=== PATIENT | female | born 1955 | race Caucasian/White ===

== ENCOUNTER 2017-04-16 07:32 | Observation (INO) ==
[2017-04-16] MEDS ORDERED: 0.9 % Sodium Chloride 1,000 ML IVC ONE (07:58)
--- NOTE | 2017-04-16 08:07 | Emergency Department Note ---
Disposition Clinical Impression: Seizure, Resolved abdominal pain Disposition: Admitted As Inpatient Condition: Good Time of Disposition: 12:31 General Adult HPI - General Chief complaint: ED Seizure Stated complaint: seizure/postictal Time Seen by Provider: 04/16/17 07:37 Source: patient, EMS Mode of arrival: EMS Limitations: no limitations Nursing Notes Reviewed: Yes Vital Signs Reviewed: Yes - History of Present Illness HPI Narrative: Pt is a 62 year old female with history of anxiety, bipolar disorder, schizophrenia, hld, htn, and gerd that presents to the ED with chief complaint seizure like- activity, nausea and vomiting. Patient states that she woke this morning around 6 AM and vomited 3-4 times. Patient states she felt very hot and clammy so her put a cool rag over her forehead while laying in bed states patient upper and lower extremities startted shaking uncontrollable for approx 2-3 minutes and her eyes rolled back in her head. Pt states " I don't know if I was having a seizure or what, I don't remember any of it" states he then called EMS. Upon arrival patient is denying any complaints besides right upper abdominal pain and lower back pain that started when she got here. She denies any chest pain, shortness of breath, vomiting, diarrhea, constipation, cough, headache, dizziness, lightheadedness, change in vision or any other symptoms/complaints. Denies any recent head trauma. Pain Scale: 7 - Related Data Home Medications Medication Instructions Recorded Confirmed Aspirin Enteric Coated [Aspirin EC] 81 mg PO DAILY 11/14/16 04/16/17 hydrOXYzine HCl [Hydroxyzine HCl] 25 mg PO Q8H PRN 11/14/16 04/16/17 hydroCHLOROthiazide 12.5 mg PO DAILY 11/14/16 04/16/17 [Hydrochlorothiazide] Metoprolol XL (24 HR) Succ [Toprol 50 mg PO DAILY 04/16/17 04/16/17 XL] Simvastatin [Zocor] 10 mg PO QPM 04/16/17 04/16/17 Allergies Allergy/AdvReac Type Severity Reaction Status Date / Time Erythromycin Base Allergy Hives Verified 04/16/17 07:35 hydrocodone [From [place]] AdvReac Nausea Verified 04/16/17 07:35 quetiapine [From Sero[place]] AdvReac Numbness Verified 04/16/17 13:12 Past Medical History - Past Medical History Medical history: Reports: GERD, hyperlipidemia, hypertension, other Surgical history: Reports: hysterectomy Psychiatric history: Reports: anxiety, bipolar, depression [employer] history: Reports: cervical cancer - Social History Smoking Status: Never smoker Smokeless Tobacco Status: No Alcohol use: Reports: none Drug use: Reports: none Physical Exam - General Limitations: no limitations General appearance: alert, in no apparent distress - Head Head exam: atraumatic, normocephalic, normal inspection - Eye Eye exam: Present: normal appearance, PERRL, EOMI - ENT ENT exam: normal exam, normal oropharynx, mucous membranes moist, TM's normal bilaterally - Neck Neck exam: Present: normal inspection, full ROM, trachea midline. Absent: tenderness, meningismus - Chest Chest inspection: Present: symmetric chest wall rise - Respiratory Respiratory exam: Present: normal lung sounds bilaterally - Cardiovascular Cardiovascular exam: Present: regular rate, normal rhythm, normal heart sounds - Abdominal Exam Abdominal exam: Present: soft, tenderness (mild RUQ/ epigastric tenderness with palpation), normal bowel sounds. Absent: distention, guarding, rebound, rigidity - Extremities Exam Extremities exam: Present: normal inspection, full ROM. Absent: tenderness, pedal edema - Expanded Lower Extremity Exam Gait: observed and normal - Back Exam Back exam: Present: normal inspection, full ROM. Absent: tenderness - Neurological Exam Neurological exam: Present: alert, oriented X3, CN II-XII intact, normal gait. Absent: motor sensory deficit - Psychiatric Psychiatric exam: Present: normal affect, normal mood - Skin Skin exam: Present: warm, dry, intact, normal color Course Course Narrative: Pt is a 62 year old female with history of anxiety, bipolar disorder, schizophrenia, hld, htn, and gerd that presents to the ED with chief complaint seizure like- activity, nausea and vomiting. Patient states that she woke this morning around 6 AM and vomited 3-4 times. Patient states she felt very hot and clammy so her put a cool rag over her forehead while laying in bed states patient upper and lower extremities startted shaking uncontrollable for approx 2-3 minutes and her eyes rolled back in her head. Pt states " I don't know if I was having a seizure or what, I don't remember any of it" states he then called EMS. Upon arrival patient is denying any complaints besides right upper abdominal pain and lower back pain that started when she got here. She denies any chest pain, shortness of breath, vomiting , diarrhea, constipation, cough, headache, dizziness, lightheadedness, change in vision or any other symptoms/complaints. Denies any recent head trauma. Patient is a 62-year-old female. Vital stable. Afebrile. Alert and oriented 3. Appears in no acute distress. Head normocephalic. No signs of external trauma. Eyes normal inspection. PERRLA. Extraocular motor intact. ENT within normal limits. Airway patent. Neck supple, full range motion, nontender. No signs of meningeal irritation. Heart RRR. Lungs CTAB. Abdomen soft, mild right upper quadrant and epigastric tenderness with palpation. No Guarding or rebound noted. Normal bowel sounds. Neck normal inspection, nontender. Extremities within normal limits. Neuro no focal neurological deficits noted on exam. Pt seen by Dr. Trinh in conjunction with me. Patient told Dr. Trinh at that she had been talking to GOD and her time to is this year. He denies any suicidal or homicidal ideations. We will consult 1A secondary to her previous psych history. Pt reports abdominal pain is completely resolved without any pain medication. EKG normal sinus. Chest x-ray shows no acute cardiopulmonary abnormalities. Labs unremarkable. WBC within normal limits. CT of the abd and pelvis: Motion limited study. No convincing evidence for acute intra- abdominal or intrapelvic pathology. No bowel obstruction or inflammation. No free intraperitoneal air or fluid. No convincing evidence for nephrolithiasis. Bilateral parapelvic renal cysts. Evidence for previous granulomatous exposure. Stable tiny pulmonary nodule in the left lower lung as previously described. Please see CT report of 10/09/2016 for follow-up recommendations. Reviewed Dr. Ackerman note from when pt was admitted to the hospital/ MRI was negative for acute stroke but there is are of increase signal in temporal lobe, repeat MRI in one month was recommended. MRI as follows: MRI from 11/15/16 1. Mild increased T2 signal intensity within the left hippocampus. This may represent a seizure focus. 2. Two foci of increased signal on diffusion-weighted imaging without clear restricted diffusion on the ADC map suggesting T2 shine through and subacute to chronic infarcts. 3. 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 4. No acute infarct identified. Discussed case with neurologist Dr. Pickens. Dr. Pickens recommended patient be admitted to the hospital service for an MRI. Pt agrees with tx plan. 1A evaluated patient and gave patient outpatient follow-up resources. States she did not meet inpatient criteria for psych. Denies any homicidal/suicidal deviations. Discussed case with the hospitalist . Accepted patient. He is requesting that we give 1000mg of Keppra in our ED prior to the floor. Dr. Louis in the ED seeing patient now. 01:05PM. Dr. Trinh had [id number] time with patient and agrees with my assessment and treatment plan. Vital Signs Temperature 98.2 F 04/16/17 07:35 Pulse Rate 60 04/16/17 07:35 Respiratory Rate 20 04/16/17 07:35 Blood Pressure 172/80 04/16/17 07:35 O2 Sat by Pulse Oximetry 99 04/16/17 07:35 Temperature 97.9 F 04/16/17 14:57 Pulse Rate 57 04/16/17 14:57 Respiratory Rate 20 04/16/17 15:09 Blood Pressure 154/89 04/16/17 15:09 O2 Sat by Pulse Oximetry 98 04/16/17 14:57 Oxygen Delivery Oxygen Delivery Room Air Medical Decision Making - Medical Records Medical records reviewed: Yes I reviewed the patient's medical records. - Lab Data Lab results reviewed: Yes I reviewed the patient's lab results. Result diagrams: 04/16/17 08:13 04/16/17 08:13 Lab Results 04/16/17 04/16/17 04/16/17 Range/Units 07:52 08:13 08:13 WBC 10.8 (4.3-11.1) K/mcL RBC 5.22 H (3.82-4.97) M/mcL Hgb 14.3 (11.5-15.4) g/dL Hct 42.6 (35.3-44.9) % MCV 81.6 L (83.0-100.0) fL MCH 27.4 L (28.0-33.3) pg MCHC 33.6 (31.6-35.5) g/dL RDW 12.7 (11.5-14.5) % Plt Count 277 (140-400) K/mcL MPV 10.0 (9.4-12.4) fL Immature Gran % 0.6 (0-4) % Seg Neutrophils % 82.8 % Lymphocytes % 12.5 % Monocytes % 3.7 % Eosinophils % 0.2 % Basophils % 0.2 % Neutrophils # 8.9 (1.6-8.9) K/mcL Lymphocytes # 1.4 (0.6-4.6) K/mcL Monocytes # 0.4 (0.0-1.3) K/mcL Eosinophils # 0.0 (0.0-0.6) K/mcL Basophils # 0.0 (0.0-0.2) K/mcL Sodium 139 (136-145) mEq/L Potassium 3.7 (3.5-5.1) mEq/L Chloride 106 (98-107) mEq/L Carbon Dioxide 25 (23-29) mEq/L BUN 8 (8-23) mg/dL Creatinine 0.64 (0.60-1.20) mg/dL Est GFR ( Amer) > 60 (> 60) Est GFR (Non-Af Amer) > 60 (> 60) BUN/Creatinine Ratio 13 (6-26) Glucose 174 H (70-105) mg/dL POC Glucose 195 H (58-89) Calculated Osmolality 291 (280-300) Calcium 9.7 (8.6-10.3) mg/dL Total Bilirubin 0.4 (0.3-1.0) mg/dL AST 12 L (13-39) Units/L ALT 13 (7-52) Units/L Alkaline Phosphatase 83 (34-104) Units/L Troponin I (< 0.04) ng/mL Serum Total Protein 6.9 (6.4-8.9) g/dL Albumin 4.2 (3.5-5.7) g/dL Globulin 2.7 (2.4-3.5) g/dL Albumin/Globulin Ratio 1.6 (1.1-2.2) Lipase (11-82) Units/L Urine Color (Yellow) Urine Clarity (Clear) Urine pH (5.0-8.0) pH Units Ur Specific [place] (1.010-1.025) Urine Protein (Neg-Trace) mg/dL Urine Glucose (UA) (Normal) mg/dL Urine Ketones (Negative) mg/dL Urine Blood (Negative) Urine Nitrite (Negative) Urine Bilirubin (Negative) Urine Urobilinogen (Normal) mg/dL Ur Leukocyte Esterase (Negative) Urine Microscopic RBC (0-3) per hpf Urine Microscopic WBC (0-3) per hpf Ur Squamous Epith Cells (None-Few) per lpf Urine Bacteria (None-Few) per hpf Hyaline Casts (None-Few) per lpf Urine Opiates Screen (Wjhotv=811) ng/mL Ur Barbiturates Screen (Aaagfv=473) ng/mL Ur Phencyclidine Scrn (Cutoff=25) ng/mL Ur Amphetamines Screen (Grrpvj=3309) ng/mL U Benzodiazepines Scrn (Ojvxnd=855) ng/mL Urine Cocaine Screen (Cutoff= 300) ng/mL U Marijuana (THC) Screen (Cutoff = 50) ng/mL 04/16/17 04/16/17 04/16/17 Range/Units 08:13 08:13 08:17 WBC (4.3-11.1) K/mcL RBC (3.82-4.97) M/mcL Hgb (11.5-15.4) g/dL Hct (35.3-44.9) % MCV (83.0-100.0) fL MCH (28.0-33.3) pg MCHC (31.6-35.5) g/dL RDW (11.5-14.5) % Plt Count (140-400) K/mcL MPV (9.4-12.4) fL Immature Gran % (0-4) % Seg Neutrophils % % Lymphocytes % % Monocytes % % Eosinophils % % Basophils % % Neutrophils # (1.6-8.9) K/mcL Lymphocytes # (0.6-4.6) K/mcL Monocytes # (0.0-1.3) K/mcL Eosinophils # (0.0-0.6) K/mcL Basophils # (0.0-0.2) K/mcL Sodium (136-145) mEq/L Potassium (3.5-5.1) mEq/L Chloride (98-107) mEq/L Carbon Dioxide (23-29) mEq/L BUN (8-23) mg/dL Creatinine (0.60-1.20) mg/dL Est GFR ( Amer) (> 60) Est GFR (Non-Af Amer) (> 60) BUN/Creatinine Ratio (6-26) Glucose (70-105) mg/dL POC Glucose (58-89) Calculated Osmolality (280-300) Calcium (8.6-10.3) mg/dL Total Bilirubin (0.3-1.0) mg/dL AST (13-39) Units/L ALT (7-52) Units/L Alkaline Phosphatase (34-104) Units/L Troponin I < 0.03 (< 0.04) ng/mL Serum Total Protein (6.4-8.9) g/dL Albumin (3.5-5.7) g/dL Globulin (2.4-3.5) g/dL Albumin/Globulin Ratio (1.1-2.2) Lipase 27 (11-82) Units/L Urine Color Yellow (Yellow) Urine Clarity Cloudy A (Clear) Urine pH 8.0 (5.0-8.0) pH Units Ur Specific [place] 1.015 (1.010-1.025) Urine Protein Trace (Neg-Trace) mg/dL Urine Glucose (UA) 250 H (Normal) mg/dL Urine Ketones Negative (Negative) mg/dL Urine Blood Negative (Negative) Urine Nitrite Negative (Negative) Urine Bilirubin Negative (Negative) Urine Urobilinogen Normal (Normal) mg/dL Ur Leukocyte Esterase Negative (Negative) Urine Microscopic RBC 0-3 (0-3) per hpf Urine Microscopic WBC 0-3 (0-3) per hpf Ur Squamous Epith Cells Many H (None-Few) per lpf Urine Bacteria None Seen (None-Few) per hpf Hyaline Casts None Seen (None-Few) per lpf Urine Opiates Screen (Vsudjt=881) ng/mL Ur Barbiturates Screen (Kqzhkf=602) ng/mL Ur Phencyclidine Scrn (Cutoff=25) ng/mL Ur Amphetamines Screen (Lobnxv=5082) ng/mL U Benzodiazepines Scrn (Ujjcma=432) ng/mL Urine Cocaine Screen (Cutoff= 300) ng/mL U Marijuana (THC) Screen (Cutoff = 50) ng/mL 04/16/17 Range/Units 08:17 WBC (4.3-11.1) K/mcL RBC (3.82-4.97) M/mcL Hgb (11.5-15.4) g/dL Hct (35.3-44.9) % MCV (83.0-100.0) fL MCH (28.0-33.3) pg MCHC (31.6-35.5) g/dL RDW (11.5-14.5) % Plt Count (140-400) K/mcL MPV (9.4-12.4) fL Immature Gran % (0-4) % Seg Neutrophils % % Lymphocytes % % Monocytes % % Eosinophils % % Basophils % % Neutrophils # (1.6-8.9) K/mcL Lymphocytes # (0.6-4.6) K/mcL Monocytes # (0.0-1.3) K/mcL Eosinophils # (0.0-0.6) K/mcL Basophils # (0.0-0.2) K/mcL Sodium (136-145) mEq/L Potassium (3.5-5.1) mEq/L Chloride (98-107) mEq/L Carbon Dioxide (23-29) mEq/L BUN (8-23) mg/dL Creatinine (0.60-1.20) mg/dL Est GFR ( Amer) (> 60) Est GFR (Non-Af Amer) (> 60) BUN/Creatinine Ratio (6-26) Glucose (70-105) mg/dL POC Glucose (58-89) Calculated Osmolality (280-300) Calcium (8.6-10.3) mg/dL Total Bilirubin (0.3-1.0) mg/dL AST (13-39) Units/L ALT (7-52) Units/L Alkaline Phosphatase (34-104) Units/L Troponin I (< 0.04) ng/mL Serum Total Protein (6.4-8.9) g/dL Albumin (3.5-5.7) g/dL Globulin (2.4-3.5) g/dL Albumin/Globulin Ratio (1.1-2.2) Lipase (11-82) Units/L Urine Color (Yellow) Urine Clarity (Clear) Urine pH (5.0-8.0) pH Units Ur Specific [place] (1.010-1.025) Urine Protein (Neg-Trace) mg/dL Urine Glucose (UA) (Normal) mg/dL Urine Ketones (Negative) mg/dL Urine Blood (Negative) Urine Nitrite (Negative) Urine Bilirubin (Negative) Urine Urobilinogen (Normal) mg/dL Ur Leukocyte Esterase (Negative) Urine Microscopic RBC (0-3) per hpf Urine Microscopic WBC (0-3) per hpf Ur Squamous Epith Cells (None-Few) per lpf Urine Bacteria (None-Few) per hpf Hyaline Casts (None-Few) per lpf Urine Opiates Screen Negative (Wzyzzm=084) ng/mL Ur Barbiturates Screen Negative (Lovtif=409) ng/mL Ur Phencyclidine Scrn Negative (Cutoff=25) ng/mL Ur Amphetamines Screen Negative (Necukz=4308) ng/mL U Benzodiazepines Scrn Negative (Uzbity=166) ng/mL Urine Cocaine Screen Negative (Cutoff= 300) ng/mL U Marijuana (THC) Screen Negative (Cutoff = 50) ng/mL - Radiology Data Radiology results reviewed: Yes I reviewed the patient's radiology results. Attestation Statement - Attestation Attestation: I, Erik Trinh DO have provided [id number]-[id number] time during the care of this patient. Detailed review the presentation, symptoms, medical history were discussed and reviewed with the mid-level provider Candice Trinh PA-C. Medical intervention labs and imaging studies were reviewed in detail. See full documentation of physical exam and course of care in the mid-level provider's note. I agree with the determined course of care, medical intervention and disposition put forth by the mid-level provider. See below documentation for changes or alterations in documentation. 58-year-old female presents to the emergency room from multiple complaints. She has chest pain headache nausea vomiting abdominal discomfort. She also had seizure-like activity at home according to the family. Lengthy review as well as workup were completed at the bedside. Patient has no acute neurologic deficits or symptoms at this time. Patient is alert she speaks in full sentences and does not appear to have any acute medical issues. At his atraumatic Reactive lungs are clear heart is regular. Abdomen is soft. Patient definitively is concerning for possible neurologic versus psychiatric-related illness. CT imaging of the head and labs unremarkable. Review the charts in the past shows an MRI was positive for possible temporal lobe likely related issue. Consultation postoperatively neurologist on-call for their recommendations and they felt that it was most appropriate for the patient to be admitted secondary to the constitution of symptoms here today. Patient otherwise is stable vital signs. Symptoms of an control. Disposition will be admission with neurology consultation. See detailed documentation of the physical exam, medical intervention, medical decision-making and disposition in the mid-level provider's note. 1350 Patient found to have concern by the neurologist for the previous MRI. Recommended admission. Admission passes completed this time. No critical care by this patient's treatment course
[2017-04-16 08:21] LABS: Basophils % 0.2 %; Eosinophils % 0.2 %; Hematocrit 42.6 % (35.3-44.9); Hemoglobin 14.3 g/dL (11.5-15.4); Immature Granulocytes % 0.6 % (0-4); Lymphocytes # 1.4 K/mcL (0.6-4.6); Lymphocytes % 12.5 %; Mean Corpuscular HGB Conc 33.6 g/dL (31.6-35.5); Mean Corpuscular Hemoglobin 27.4 pg (28.0-33.3); Mean Corpuscular Volume 81.6 fL (83.0-100.0); Monocytes # 0.4 K/mcL (0.0-1.3); Monocytes % 3.7 %; Neutrophils # 8.9 K/mcL (1.6-8.9); Platelet Count 277 K/mcL (140-400); Red Blood Count 5.22 M/mcL (3.82-4.97); Red Cell Distribution Width 12.7 % (11.5-14.5); Segmented Neutrophils % 82.8 %
[2017-04-16 08:32] LABS: Bilirubin,Urine Negative (Negative); Blood,Urine Negative (Negative); Clarity,Urine Cloudy (Clear); Color,Urine Yellow (Yellow); Glucose,Urine (UA) 250 mg/dL (Normal); Ketones,Urine Negative (Negative); Leukocyte Esterase,Urine Negative (Negative); Nitrite,Urine Negative (Negative); Protein,Urine Trace mg/dL (Neg-Trace); Specific Gravity,Urine 1.015 (1.010-1.025); Urobilinogen,Urine Normal (Normal)
[2017-04-16 08:33] LABS: Albumin 4.2 g/dL (3.5-5.7); Bilirubin,Total 0.4 mg/dL (0.3-1.0); Calcium 9.7 mg/dL (8.6-10.3); Carbon Dioxide 25 mEq/L (23-29); Chloride 106 mEq/L (98-107); Potassium 3.7 mEq/L (3.5-5.1); Sodium 139 mEq/L (136-145)
[2017-04-16 08:34] LABS: Bacteria,Urine None Seen per hpf (None-Few); Hyaline Casts,Urine None Seen per lpf (None-Few); RBC,Urine 0-3 per hpf (0-3); Squamous Epithelial Cell,Urine Many per lpf (None-Few); WBC,Urine 0-3 per hpf (0-3)
[2017-04-16 08:38] LABS: Amphetamine Screen,Urine Negative ng/mL (Cutoff=1000); Barbiturate Screen,Urine Negative ng/mL (Cutoff=200); Benzodiazepines Screen,Urine Negative ng/mL (Cutoff=200); Cannabinoid Screen,Urine Negative ng/mL (Cutoff = 50); Cocaine Screen,Urine Negative ng/mL (Cutoff= 300); Opiate Screen,Urine Negative ng/mL (Cutoff=300); Phencyclidine Screen,Urine Negative ng/mL (Cutoff=25)
[2017-04-16 08:39] LABS: Alanine Aminotransferase 13 Units/L (7-52); Albumin/Globulin Ratio 1.6 (1.1-2.2); Alkaline Phosphatase 83 Units/L (34-104); Aspartate Amino Transferase 12 Units/L (13-39); BUN/Creatinine Ratio 13 (6-26); Blood Urea Nitrogen 8 mg/dL (8-23); Globulin 2.7 g/dL (2.4-3.5); Glucose 174 mg/dL (70-105); Osmolality,Calculated 291 (280-300); Total Protein 6.9 g/dL (6.4-8.9); eGFR For African Americans > 60 (> 60); eGFR For Non-African Americans > 60 (> 60)
[2017-04-16] MEDS ORDERED: levETIRAcetam 1,000 MG in 0.9 % Sodium Chloride 100 ML IVPB ONE (13:03)
[2017-04-16] MEDS ORDERED: Ondansetron 4 MG/2 ML VIAL IVP PRN (13:20)
[2017-04-16] MEDS ORDERED: Mag Hydrox/Al Hydrox/Simeth 30 ML UDC PO PRN (13:20)
[2017-04-16] MEDS ORDERED: Acetaminophen 325 MG TABLET PO PRN (13:20)
[2017-04-16] MEDS ORDERED: *HR* Promethazine 25 MG/ML VIAL IVP PRN (13:20)
[2017-04-16] MEDS ORDERED: Naloxone 0.4 MG/ML INJ IVP PRN (13:20)
[2017-04-16] MEDS ORDERED: hydrOXYzine pamoate 25 MG CAPSULE PO PRN (13:30)
--- NOTE | 2017-04-16 13:39 | Internal Med History&Physical ---
Date of Encounter: 04/16/17 Time of Encounter: 13:00 Assessment and Plan (1) Seizure Current visit: Yes Status: Acute Will place the pt into Med Surg for observation Her seizure seems to be real, and she had previous episode of seizure in 11/11 so at this point I would start her on Keppra 1000mg IV BID Hoping Keppra can help her mood disorder problems too Reviewed her MRI of Brain from 11/11 showed mild increased signal intensity at Left Hippocampus - concerning seizure foci will repeat another MRI of Head Neuro consulted ordered EEG too Neuro check / seizure precautions BZD PRN (2) Anxiety Current visit: No Status: Chronic started her on Klonopin (3) Bipolar disorder Current visit: No Status: Chronic She does have significant psych problems Will consult Psych today for further eval and needed close f/u as an out pt too Qualifiers: Active/Remission status: remission status unspecified Qualified Code(s): F31.9 - Bipolar disorder, unspecified (4) Hypertension Current visit: No Status: Chronic resumed home meds also placed her on Hydralazine IV PRN Qualifiers: Hypertension type: essential hypertension Qualified Code(s): I10 - Essential (primary) hypertension (5) Schizophrenia Current visit: No Status: Chronic Qualifiers: Schizophrenia type: unspecified Qualified Code(s): F20.9 - Schizophrenia, unspecified Internal Medicine - H&P: HPI Chief complaint: Seizure Admitted From: Emergency Dept Plans for Post Hospital Care: Home History of present illness: Ms. Jane is a 62 year old female with history of anxiety, bipolar disorder , schizophrenia, HLD, HTN and GERD with questionable seizure episode x 1 in 2016 now she was brought into the ED with chief complaint seizure like- activity , nausea and vomiting. Pt is a poor historial , she is unable to give me complete history what happened, also she mentioned she is not able to recall all the events what happened to at home. I did talk to pt's who is at bed side. As per she woke this morning around 6 AM and vomited 3-4 times. She felt very hot and clammy so her put a cool rag over her forehead while laying in bed. Then she started shaking uncontrollably her both upper and lower extremities for approx 2-3 minutes and her eyes rolled back in her head. Pt states " I don't know if I was having a seizure or what, I don't remember any of it" states he then called EMS. Now she is alert, awake and O x3. She denies any chest pain, shortness of breath, vomiting, diarrhea, constipation, cough, headache, dizziness, lightheadedness, change in vision or any other symptoms/complaints. Denies any recent head trauma. All she is worried about her Klonopin , she does have significant Bipolar / schizophrenia, not taking any medications and not following any psychiatrist. Past Med Surg Social Fam HX - Past Medical History Medical history: GERD, hyperlipidemia, hypertension, other Psychiatric history: anxiety, bipolar, depression - Past Surgical History Surgical History: hysterectomy - Social History Smoking Status: Never smoker Smokeless Tobacco Status: No Alcohol use: none Drug use: none - Family History Mother Hx Family Cardiac Disorders: Yes Hx Family Respiratory Disorders: No Hx Family Cancer: Yes Hx Family GI Disorders: No Hx Family Endocrine Disorder: No Hx Family Neuromuscular Disorders: No Hx Family Neurologic Disorders: No Hx Family HEENT Disorders: No Hx Family Autoimmune Disorders: No - Additional Family History Additional family history: Reviewed and denied any seizure disorder in the family Internal Medicine - H&P: Meds Aspirin Enteric Coated [Aspirin EC] 81 mg PO DAILY 11/14/16 [History] hydrOXYzine HCl [Hydroxyzine HCl] 25 mg PO Q8H PRN 11/14/16 [History] hydroCHLOROthiazide [Hydrochlorothiazide] 12.5 mg PO DAILY 11/14/16 [History] Metoprolol XL (24 HR) Succ [Toprol XL] 50 mg PO DAILY 04/16/17 [History] Simvastatin [Zocor] 10 mg PO QPM 04/16/17 [History] 3 Allergy/AdvReac Type Severity Reaction Status Date / Time Erythromycin Base Allergy Hives Verified 04/16/17 07:35 hydrocodone [From [place]] AdvReac Nausea Verified 04/16/17 07:35 quetiapine [From Seroquel] AdvReac Numbness Verified 04/16/17 13:12 All Systems PM: A 10-system review of systems was performed and is negative for pertinent findings except as documented above in the HPI. Review of systems: All the systems are reviewed everything is benign except the systems and symptoms I mentioned in the history of present illness - Constitutional Vitals: Temp Pulse Resp BP Pulse Ox 98.2 F 62 20 164/91 97 04/16/17 07:35 04/16/17 10:48 04/16/17 10:48 04/16/17 10:48 04/16/17 10:48 General appearance: Present: A&O X 3, no acute distress, answers questions appropriately - Head Head exam: Present: atraumatic, normal inspection - Neck Neck exam general surgery: Present: supple - Respiratory Respiratory exam: Present: decreased breath sounds. Absent: rales, respiratory distress, rhonchi, wheezes - Cardiovascular Cardiovascular exam: Present: RRR, +S1, +S2. Absent: tachycardia - GI/Abdominal GI/Abdominal exam: Present: normal bowel sounds, soft. Absent: rebound, rigid, tenderness - Extremities Exam Extremities exam: Absent: calf tenderness, pedal edema, tenderness - Back Exam Back exam: Absent: CVA tenderness (L), CVA tenderness (R) - Neurological Exam Neurological exam: Present: alert, oriented X3, reflexes normal, no focal deficits, strengths equal and symetr throughout. Absent: pronater drift, facial droop, speech deficit - Psychiatric Psychiatric exam: Present: anxious - Skin Skin exam: Absent: rash Internal Med - H&P Results - Labs CBC & Chem 7: 04/16/17 08:13 04/16/17 08:13 Labs: Short CBC 04/16/17 Range/Units 08:13 WBC 10.8 (4.3-11.1) K/mcL Hgb 14.3 (11.5-15.4) g/dL Hct 42.6 (35.3-44.9) % Plt Count 277 (140-400) K/mcL Neutrophils # 8.9 (1.6-8.9) K/mcL BMP 04/16/17 08:13 Sodium 139 Potassium 3.7 Chloride 106 Carbon Dioxide 25 BUN 8 Creatinine 0.64 Glucose 174 H Calcium 9.7 Cardiac Enzymes 04/16/17 Range/Units 08:13 Troponin I < 0.03 (< 0.04) ng/mL Liver Function 04/16/17 Range/Units 08:13 Total Bilirubin 0.4 (0.3-1.0) mg/dL AST 12 L (13-39) Units/L ALT 13 (7-52) Units/L Alkaline Phosphatase 83 (34-104) Units/L Albumin 4.2 (3.5-5.7) g/dL Urine 04/16/17 Range/Units 08:17 Urine Color Yellow (Yellow) Urine Clarity Cloudy A (Clear) Urine pH 8.0 (5.0-8.0) pH Units Ur Specific [place] 1.015 (1.010-1.025) Urine Protein Trace (Neg-Trace) mg/dL Urine Glucose (UA) 250 H (Normal) mg/dL - Impressions ITS Impressions Abdomen/Pelvis CT 04/16/17 08:00 IMPRESSION: Motion limited study. No convincing evidence for acute intra- abdominal or intrapelvic pathology. No bowel obstruction or inflammation. No free intraperitoneal air or fluid. No convincing evidence for nephrolithiasis. Bilateral parapelvic renal cysts. Evidence for previous granulomatous exposure. Stable tiny pulmonary nodule in the left lower lung as previously described. Please see CT report of 10/09/2016 for follow-up recommendations. D/ / Chino Farrell MD / Chino Farrell MD Interpreting Provider: Chino Farrell MD Chest X-Ray 04/16/17 08:01 IMPRESSION: No acute process. D/ / Radu Peña MD / Radu Peña MD Interpreting Provider: Radu Peña MD
--- NOTE | 2017-04-16 15:57 | Neurology - Consult Note ---
<Dylan Turner - Last Filed: 04/16/17 15:47> Date of Encounter: 04/16/17 Time of Encounter: 14:00 Assessment and Plan (1) Seizure-like activity Current Visit: Yes Status: Acute 62 yo Female who was last seen in 11/11 for new onset seizure like symptoms admitted after she had 5-10 minutes of limb shaking and eyes rolling back in her head followed by break in symptoms and gradual return to current mental status. No tongue bitting or loss of bowel or bladder. She had symptoms in the setting of possible manic episode and lack of sleep for 8 days. She has not been on or start on anti-seizure medication. She did not follow up with neurology as recommended after discharge from her last stay in October. She did not obtain a repeat MRI as recommended. MRI of the brain from October demonstrates: IMPRESSION: 1. Mild increased T2 signal intensity within the left hippocampus. This may represent a seizure focus. 2. Two foci of increased signal on diffusion-weighted imaging without clear restricted diffusion on the ADC map suggesting T2 shine through and subacute to chronic infarcts. 3. 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 4. No acute infarct identified. - She was given Levetiracetam 1000mg IVPB in the emergency department. Hx does not correlate with active seizures and there is possible pseudoseizure activity. She has old lacunar infarcts likely secondary to uncontrolled HTN. There was note of a T2 signal intensity within the left hippocampus that after review today was not well appreciated. There is possibility that she had lowered her seizure threshold do to sleep deprivation yet this does not appears as likely. Her symptoms may be secondary to her underlining psychiatric disorder and clearly is in a manic episode with lack of sleep for day, pressure and tangential speech. Plan: - EEG - MRI of the Brain - EKG - Telemetry - Should be seen by psychiatry for evaluation. (2) Bipolar disorder Current Visit: No Status: Chronic Patient should be evaluated by psychiatry for potential treatment. Qualifiers: Active/Remission status: remission status unspecified Qualified Code(s): F31.9 - Bipolar disorder, unspecified History of Present Illness Chief complaint: possible seizure HPI: Ms. Jane is a 62 year old female significant PMH multiple lacunar infarcts , HLD, HTN, Bipolar disorder, anxiety and previous admit for possible seizure activity was brought to the emergency department for possible recurrent seizure like activity. Upon evaluation she appears very anxious, jittery, pressured speech and tangential conversation with repetitive speech. She says that she has been awake for 8 days and can not sleep no matter what she does. She was not feeling well today with an episode of vomiting and then laid on the couch next to her significant other Rafal who said while she was laying there her legs started shaking followed by upper and lower limb shaking with her eyes rolling back into her head. She would not answer questions and this lasted 5-10 mins in duration. She came too slowly with difficult with noticing her surroundings but returned fully to her current state of health. Rafal states that this was similar to her previous episode back in November for which she was evaluated here at [facility]. She states she has a blacks spot on her brain that she knew was there and is causing these seizure activities. She also states that she knows Sanjeev is calling her to [employer] and she has done math and calculated that this date is in June. She denies hearing voices. She denies any previous Seizure activity before November and that this episode and the last episode were under similar situations of lack of sleep for multiple days. She had not followed up with Neurology post discharge and did not have a repeat MRI. Past Med Surg Social Fam HX - Past Medical History Medical history: GERD, hyperlipidemia, hypertension, other Psychiatric history: anxiety, bipolar, depression - Past Surgical History Surgical History: hysterectomy - Social History Smoking Status: Never smoker Smokeless Tobacco Status: No Alcohol use: none Drug use: none - Family History Mother Hx Family Cardiac Disorders: Yes Hx Family Respiratory Disorders: No Hx Family Cancer: Yes Hx Family GI Disorders: No Hx Family Endocrine Disorder: No Hx Family Neuromuscular Disorders: No Hx Family Neurologic Disorders: No Hx Family HEENT Disorders: No Hx Family Autoimmune Disorders: No Medications and Allergies Aspirin Enteric Coated [Aspirin EC] 81 mg PO DAILY 11/14/16 [History] hydrOXYzine HCl [Hydroxyzine HCl] 25 mg PO Q8H PRN 11/14/16 [History] hydroCHLOROthiazide [Hydrochlorothiazide] 12.5 mg PO DAILY 11/14/16 [History] Metoprolol XL (24 HR) Succ [Toprol XL] 50 mg PO DAILY 04/16/17 [History] Simvastatin [Zocor] 10 mg PO QPM 04/16/17 [History] 3 Allergy/AdvReac Type Severity Reaction Status Date / Time Erythromycin Base Allergy Hives Verified 04/16/17 07:35 hydrocodone [From [place]] AdvReac Nausea Verified 04/16/17 07:35 quetiapine [From [place]] AdvReac Numbness Verified 04/16/17 13:12 All Systems: The remainder of the systems were reviewed and are negative - Constitutional Constitutional ROS IM: no anorexia, no chills, no fatigue, no fever(s), no frequent falls, no headache(s), no weakness - Nose, Mouth, Throat Nose, mouth and throat: no hoarseness, no throat swelling - Cardiovascular Cardiovascular ROS IM: no chest pain, no chest pain at rest, no chest pain with activity, no irregular heart rhythm, no rapid heart rate, no slow heart rate, no syncope - Respiratory Respiratory IM: no cough, no dyspnea, no hemoptysis - Gastrointestinal Gastrointestinal: no change in bowel habits, no diarrhea, no melena, no nausea - Musculoskeletal Musculoskeletal ROS IM: no limited range of motion, no muscle weakness, no numbness - Neurological Neurological ROS: syncope, no disequilibrium, no dizziness, no lack of coordination, no loss of vision, no vertigo, no weakness - Psychiatric Psychiatric general PM: abnormal sleep pattern, anxiety, difficulty concentrating, irritability, no auditory hallucinations, no confusion, no hallucinations Physical Examination - Vital Signs Vital Signs: Initial Vital Signs Temp Pulse Resp BP Pulse Ox 98.2 F 60 20 172/80 99 04/16/17 07:35 04/16/17 07:35 04/16/17 07:35 04/16/17 07:35 04/16/17 07:35 - Exam Exam: anxious, pressure speech, tangential conversation. - Constitutional General appearance: comfortable - Neurologic Sensorimotor examination: intact Detailed motor examination: grossly full strength in all extremities Motor examination - right side: 5/5: deltoids, biceps, triceps, wrist flexion, wrist extension, fish technologist, hip flexors, tibialis Anterior, quadriceps, toe extension (EHL), plantarflexion Motor examination - left side: 5/5: deltoids, biceps, triceps, wrist flexion, wrist extension, hip flexors, fish technologist, quadriceps, tibialis Anterior, toe extension (EHL), plantarflexion Detailed sensory examination: intact Reflex and gait examination: intact Reflexes: Biceps: 3+, Triceps: 3+, Brachioradialis: 3+, Patella: 3+, Achilles: 3 + Mental Status Examination: awake, alert, oriented to person, oriented to place, oriented to time, follows commands appropriately, does not follow commands Cranial nerve examination: PERRL, EOMI, visual hurtado intact, sensory to face intact, mastication intact, no facial asymmetry is present, flexes SCM and trapezius muscles symmetrically with full power, tongue protrudes midline Cerebellar examination: performs finger to nose and heel to parks symmetrically without ataxia Results - Laboratory Findings CBC and BMP: 04/16/17 08:13 04/16/17 08:13 Abnormal lab findings: Abnormal lab results RBC 5.22 M/mcL (3.82-4.97) H 04/16/17 08:13 MCV 81.6 fL (83.0-100.0) L 04/16/17 08:13 MCH 27.4 pg (28.0-33.3) L 04/16/17 08:13 Glucose 174 mg/dL (70-105) H 04/16/17 08:13 POC Glucose 195 (58-89) H 04/16/17 07:52 AST 12 Units/L (13-39) L 04/16/17 08:13 Urine Clarity Cloudy (Clear) A 04/16/17 08:17 Urine Glucose (UA) 250 mg/dL (Normal) H 04/16/17 08:17 Ur Squamous Epith Cells Many per lpf (None-Few) H 04/16/17 08:17 Consult Discharge Plan - Plan Referrals: Barbara Gomez, FRUIT CHECKER [Primary Care Provider] - <Navarro Pickens - Last Filed: 04/16/17 17:09> Date of Encounter: 04/16/17 Time of Encounter: 17:06 Assessment and Plan (1) Seizure-like activity Current Visit: Yes Status: Acute I am doubtful that this patient has experienced a true epileptic seizure. Idiopathic epilepsy generally starts in early life, those individuals who developed seizure later in life generally have an apparent etiology. Her EEG was normal, there was no postictal slowing present. The intensity of these events were truly epileptic in nature. I suspect that they were indeed some nonepileptic events. I will reevaluate her your request. History of Present Illness HPI: Ms. Jane is a 62 year old female All Systems: The remainder of the systems were reviewed and are negative Review of Systems: Review of systems is consistent with a history of present illness and otherwise negative. Physical Examination - Vital Signs Vital Signs: Initial Vital Signs Temp Pulse Resp BP Pulse Ox 98.2 F 60 20 172/80 99 04/16/17 07:35 04/16/17 07:35 04/16/17 07:35 04/16/17 07:35 04/16/17 07:35 - Exam Exam: I did fully exam this patient. I agree with statements made in context of her mental status. Otherwise she has no focal or lateralized events. Certainly she is not post ictal. Results - Laboratory Findings CBC and BMP: 04/16/17 08:13 04/16/17 08:13 Abnormal lab findings: Abnormal lab results RBC 5.22 M/mcL (3.82-4.97) H 04/16/17 08:13 MCV 81.6 fL (83.0-100.0) L 04/16/17 08:13 MCH 27.4 pg (28.0-33.3) L 04/16/17 08:13 Glucose 174 mg/dL (70-105) H 04/16/17 08:13 POC Glucose 195 (58-89) H 04/16/17 07:52 AST 12 Units/L (13-39) L 04/16/17 08:13 Urine Clarity Cloudy (Clear) A 04/16/17 08:17 Urine Glucose (UA) 250 mg/dL (Normal) H 04/16/17 08:17 Ur Squamous Epith Cells Many per lpf (None-Few) H 04/16/17 08:17
--- NOTE | 2017-04-16 17:05 | EEG/EMG/Oth Biometrics Report ---
EEG Procedure Report Date of procedure: 04/16/17 EEG Procedure: Routine EEG Procedure Note: This is a report of a 21 channel bipolar and referential montage EEG. The posterior dominant rhythm of 9-10 Hz moderate voltage alpha frequency is identified symmetrically in the posterior head regions. This rhythm attenuates symmetrically with eye opening. Hyperventilation is not performed during the recording. Periods of drowsiness identified as reference by dropout of the posterior dominant rhythm however the subject does not approach stage II sleep. Photic stimulations performed and does not produce a driving response. The EKG rhythm strip reveals Sinus bradycardia at 54 beats per minute. Impressions: This EEG recording is within normal limits. There is no evidence of epileptiform activity identified during the study. Comment: a normal EEG does not preclude a diagnosis of seizure or epilepsy. If the clinical suspicion for seizure activity is high, serial EEGs or perhaps a prolonged recording may increase the yield. Sinus bradycardia is identified at 54 beats per minute. Please correlate clinically.
[2017-04-16] MEDS: clonazePAM 1 MG TABLET PO PRN (22:06)
[2017-04-17] MEDS: clonazePAM 1 MG TABLET PO PRN ×3 (05:06→21:21)
[2017-04-17 07:00] LABS: Chol/HDL Ratio 3.1 (0-4.9)
[2017-04-17] MEDS: Aspirin Enteric Coated 81 MG Tablet PO SCH (09:21)
[2017-04-17] MEDS: Metoprolol XL (24 HR) Succ 50 MG TAB.ER.24H PO SCH (09:22)
[2017-04-17] MEDS: hydroCHLOROthiazide 25 MG TABLET PO SCH (09:22)
--- NOTE | 2017-04-17 10:35 | Neurology Progress Note ---
<Dylan Turner - Last Filed: 04/17/17 13:40> Date of Encounter: 04/17/17 Time of Encounter: 10:34 Assessment and Plan (1) Seizure-like activity Current Visit: Yes Status: Acute 62 yo Female who was last seen in 11/11 for new onset seizure like symptoms admitted after she had 5-10 minutes of limb shaking and eyes rolling back in her head followed by break in symptoms and gradual return to current mental status. No tongue bitting or loss of bowel or bladder. She had symptoms in the setting of possible manic episode and lack of sleep for 8 days. She has not been on or start on anti-seizure medication. She did not follow up with neurology as recommended after discharge from her last stay in October. She did not obtain a repeat MRI as recommended. MRI of the brain from October demonstrates: IMPRESSION: 1. Mild increased T2 signal intensity within the left hippocampus. This may represent a seizure focus. 2. Two foci of increased signal on diffusion-weighted imaging without clear restricted diffusion on the ADC map suggesting T2 shine through and subacute to chronic infarcts. 3. 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 4. No acute infarct identified. - She was given Levetiracetam 1000mg IVPB in the emergency department. Hx does not correlate with active seizures and there is possible pseudoseizure activity. She has old lacunar infarcts likely secondary to uncontrolled HTN. There was note of a T2 signal intensity within the left hippocampus that after review today was not well appreciated. There is possibility that she had lowered her seizure threshold do to sleep deprivation yet this does not appears as likely. Her symptoms may be secondary to her underlining psychiatric disorder and clearly is in a manic episode with lack of sleep for day, pressure and tangential speech. 04/17: No acute events over night, clinically no change compared to yesterday. EEG Impressions: This EEG recording is within normal limits. There is no evidence of epileptiform activity identified during the study. - No changes to medical therapy. Plan: - Consider Psychiatry evaluation. (2) Bipolar disorder Current Visit: No Status: Chronic Patient should be evaluated by psychiatry for potential treatment. Qualifiers: Active/Remission status: remission status unspecified Qualified Code(s): F31.9 - Bipolar disorder, unspecified Subjective Interval history: Ms. Jane 62-year-old female seen and evaluated patient bedside this morning. She denies any acute changes overnight, denies any recurrent seizure- like activity. Denies biting her tongue, loss of bowel or bladder. She states that she is feeling fine just her nerves are on and. No acute changes compared to yesterday. Objective - Constitutional Vitals: Temp Pulse Resp BP Pulse Ox 98.5 F 52 15 92/46 96 04/17/17 07:26 04/17/17 07:26 04/17/17 07:26 04/17/17 07:26 04/17/17 07:26 General appearance: Present: cooperative, A&O X 3, no acute distress, answers questions appropriately - Head Head exam: Present: atraumatic, normocephalic - Eye Eye exam: Present: PERRL, conjuntiva pink, sclera anicteric Pupils: Present: PERRL - Extremities Exam Extremities exam: Present: warm, radial pulses palpable and symmetrical. Absent : calf tenderness, cyanotic, pedal edema - Neurological Exam Sensorimotor examination: Present: intact Motor Examination: Present: grossly full strength in all extremities Motor examination - right side: 5/5: deltoids, biceps, triceps, wrist flexion, wrist extension, coat repair inspector, hip flexors, tibialis Anterior, quadriceps, toe extension (EHL), plantarflexion Motor examination - left side: 5/5: deltoids, biceps, triceps, wrist flexion, wrist extension, hip flexors, coat repair inspector, quadriceps, tibialis Anterior, toe extension (EHL), plantarflexion Sensation intact: Present: intact Reflex and gait examination: intact Reflexes: Biceps: 2+, Triceps: 2+, Brachioradialis: 2+, Patella: 2+, Achilles: 2 + Mental Status Examination: Present: awake, alert, oriented to person, oriented to place, oriented to time, follows commands appropriately, does not follow commands Cranial nerve examination: Present: PERRL, EOMI, visual hurtado intact, sensory to face intact, mastication intact, no facial asymmetry is present, flexes SCM and trapezius muscles symmetrically with full power, tongue protrudes midline Cerebellar examination: Present: performs finger to nose and heel to parks symmetrically without ataxia Results - Laboratory Findings CBC and BMP: 04/16/17 08:13 04/16/17 08:13 Abnormal lab findings: Abnormal lab results RBC 5.22 M/mcL (3.82-4.97) H 04/16/17 08:13 MCV 81.6 fL (83.0-100.0) L 04/16/17 08:13 MCH 27.4 pg (28.0-33.3) L 04/16/17 08:13 Glucose 174 mg/dL (70-105) H 04/16/17 08:13 POC Glucose 195 (58-89) H 04/16/17 07:52 AST 12 Units/L (13-39) L 04/16/17 08:13 Urine Clarity Cloudy (Clear) A 04/16/17 08:17 Urine Glucose (UA) 250 mg/dL (Normal) H 04/16/17 08:17 Ur Squamous Epith Cells Many per lpf (None-Few) H 04/16/17 08:17 Consult Discharge Plan - Plan Additional Instructions: F/up with PCP in 1-2 weeks F/up with Psychiatry as scheduled, in 2 weeks Referrals: Barbara Gomez, CHIEF CHEMIST [Primary Care Provider] - <Navarro Pickens - Last Filed: 04/17/17 17:32> Date of Encounter: 04/17/17 Time of Encounter: 17:28 Assessment and Plan (1) Seizure-like activity Current Visit: Yes Status: Acute The chart was reviewed, patient was seen and examined independently. Case was discussed with Dr. Turner. The patient does appear to be somewhat delusional. She insists that she is having "seizures", she also informed me that she undertone on the sides however I did examine her tongue and I see no evidence of bite coffey. I am not convinced that this patient is having true epileptic seizures. At this juncture I do not feel that we need to continue on with antiepileptic medication therapy. I will defer further management to psychiatry. Her neuroimaging and EEG studies are not very compelling. I will sign off and reevaluate at your request. Subjective Interval history: As above case discussed with Dr. Turner. Patient is preoccupied with various stresses in her life. She is alert and oriented to person she is sitting up talking to her now. She insists however that she is having "seizures" I did attempt to explain to her the difference between epileptic and nonepileptic seizures. Objective - Constitutional Vitals: Temp Pulse Resp BP Pulse Ox 98.1 F 75 15 124/66 96 04/17/17 15:08 04/17/17 15:08 04/17/17 15:08 04/17/17 15:08 04/17/17 15:08 Results - Laboratory Findings CBC and BMP: 04/16/17 08:13 04/16/17 08:13 Abnormal lab findings: Abnormal lab results RBC 5.22 M/mcL (3.82-4.97) H 04/16/17 08:13 MCV 81.6 fL (83.0-100.0) L 04/16/17 08:13 MCH 27.4 pg (28.0-33.3) L 04/16/17 08:13 Glucose 174 mg/dL (70-105) H 04/16/17 08:13 POC Glucose 195 (58-89) H 04/16/17 07:52 AST 12 Units/L (13-39) L 04/16/17 08:13 Urine Clarity Cloudy (Clear) A 04/16/17 08:17 Urine Glucose (UA) 250 mg/dL (Normal) H 04/16/17 08:17 Ur Squamous Epith Cells Many per lpf (None-Few) H 04/16/17 08:17
--- NOTE | 2017-04-17 15:38 | Consult Note ---
Date of Encounter: 04/17/17 Time of Encounter: 15:26 Assessment & Recommendation (1) Bipolar disorder Current visit: No Status: Chronic Assessment & Recommendation: Client appears manic/hypomanic. Would benefit from mood stabilization and treatment for a thought disorder. Has an intake appointment with an outpatient psychiatrist in two weeks. Client has not exhibited any dangerous behaviors at home per and she can likely wait until her outpatient appointment. However, inpatient treatment is certainly an option and would have faster results. Would offer inpatient treatment but if client refuses do not think she meets pink slip criteria. She is denying SI/HI. Cooperative and pleasant with this promotion writer although she is very tangential. If client and do not have safety concerns in the home and they are not wanting inpatient treatment at this time they can discharge and follow up in two weeks. Qualifiers: Active/Remission status: remission status unspecified Qualified Code(s): F31.9 - Bipolar disorder, unspecified History of Present Illness Requesting Physician: Natividad Tolbert CNP Reason for consult: Bipolar Disorder History of present illness: Ms. Jane is a 62 year old female who was admitted with questionable seizure activity. 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 Client does have an extensive mental health history with a past diagnosis of Bipolar Disorder. She has been hospitalized in the past. Was seeing a Psychiatrist on an outpatient basis but he left the practice and client has not seen anyone in the past year. Client is adamant that he was only prescribing her Klonopin. She admits to past psychosis and major mood episodes but claims she only needs Klonopin to keep her stable. Has been set up with an intake appointment to relink with a Psychiatrist in two weeks time. Discussed need for mood stabilizing agents and antipsychotics but client states she will only comply with Klonopin. Denies substance abuse issues. Physically she is treated for HTN and HLD. present and able to verify what client is saying. She is rambling and tangential but still able to give a clear mental health history. Client reports a history of SI but denies SI now. Denies HI. Denies AH/VH. Not sleeping. Appears hypomanic but reports this is the way she has been for an extended period of time. No dangerous behaviors at home. CC: Natividad Tolbert CNP Past Med Surg Social Fam HX - Past Medical History Medical history: GERD, hyperlipidemia, hypertension, other - Past Psychiatric History Psychiatric history: Reports: bipolar, previous psychiatric hospitalization Family psychiatric history: Yes Family Psychiatric History Details: Bipolar Disorder Family History of Suicide: Unknown - Past Surgical History Surgical History: hysterectomy - Social History Smoking Status: Never smoker Smokeless Tobacco Status: No Alcohol use: none Drug use: none - Family History Mother Hx Family Cardiac Disorders: Yes Hx Family Respiratory Disorders: No Hx Family Cancer: Yes Hx Family GI Disorders: No Hx Family Endocrine Disorder: No Hx Family Neuromuscular Disorders: No Hx Family Neurologic Disorders: No Hx Family HEENT Disorders: No Hx Family Autoimmune Disorders: No Medications & Allergies Aspirin Enteric Coated [Aspirin EC] 81 mg PO DAILY 11/14/16 [History] hydrOXYzine HCl [Hydroxyzine HCl] 25 mg PO Q8H PRN 11/14/16 [History] hydroCHLOROthiazide [Hydrochlorothiazide] 12.5 mg PO DAILY 11/14/16 [History] Metoprolol XL (24 HR) Succ [Toprol XL] 50 mg PO DAILY 04/16/17 [History] Simvastatin [Zocor] 10 mg PO QPM 04/16/17 [History] 3 Allergy/AdvReac Type Severity Reaction Status Date / Time Erythromycin Base Allergy Hives Verified 04/16/17 07:35 hydrocodone [From [place]] AdvReac Nausea Verified 04/16/17 07:35 quetiapine [From Sero[place]] AdvReac Numbness Verified 04/16/17 13:12 Review of Systems Constitutional: Denies: fever, chills, weakness, weight change Eyes: Denies: eye pain, vision change Ears, Nose, Throat: Denies: ear pain, throat pain, dental pain, hearing loss, congestion Cardiovascular: Denies: chest pain, palpitations, dyspnea on exertion Respiratory: Denies: cough, dyspnea, wheezes Gastrointestinal: Denies: abdominal pain, nausea, vomiting, diarrhea, constipation Genitourinary male: Denies: urgency, dysuria, frequency, genital lesions Genitourinary female: Denies: urgency, dysuria, frequency, abnormal menses, dyspareunia Musculoskeletal: Denies: joint swelling, joint pain Integumentary: Denies: rash, lesions, pruritus Neurological: Denies: headache, weakness, numbness, memory loss Endocrine: Denies: fatigue, heat or cold intolerance Hematologic/Lymphatic: Denies: easy bruising, lymphadenopathy Allergic/Immunologic: Denies: urticaria, itchy eyes Mental Status Exam Patient orientation: Yes Person, Yes Time, Yes Place Level of alertness: Alert Patient appearance: Appropriate, Well Groomed Behavior: calm, cooperative Psychomotor activity: Normal Eye contact: Maintains Eye Contact Mood description: Elevated Affect description: congruent with mood Speech pattern: Rambling Speech volume: Normal Thought process: Tangential Thought content: No Suicidal ideation, No Homicidal ideation, Yes Somatic delusion Perceptual disturbances: No Auditory hallucinations, No Visual hallucinations Attention span: Capable of Focused Attention, Capable of Sustained Attention Memory description: Grossly Intact Patient reliability: Questionable Historian Intelligence estimate: Average Judgment: Fair Insight: Partial Results - Vital Signs Vital signs: Temp Pulse Resp BP Pulse Ox 98.1 F 75 15 124/66 96 04/17/17 15:08 04/17/17 15:08 04/17/17 15:08 04/17/17 15:08 04/17/17 15:08 - Labs Labs: Laboratory Last Values WBC 10.8 K/mcL (4.3-11.1) 04/16/17 08:13 RBC 5.22 M/mcL (3.82-4.97) H 04/16/17 08:13 Hgb 14.3 g/dL (11.5-15.4) 04/16/17 08:13 Hct 42.6 % (35.3-44.9) 04/16/17 08:13 MCV 81.6 fL (83.0-100.0) L 04/16/17 08:13 MCH 27.4 pg (28.0-33.3) L 04/16/17 08:13 MCHC 33.6 g/dL (31.6-35.5) 04/16/17 08:13 RDW 12.7 % (11.5-14.5) 04/16/17 08:13 Plt Count 277 K/mcL (140-400) 04/16/17 08:13 MPV 10.0 fL (9.4-12.4) 04/16/17 08:13 Immature Gran % 0.6 % (0-4) 04/16/17 08:13 Seg Neutrophils % 82.8 % 04/16/17 08:13 Lymphocytes % 12.5 % 04/16/17 08:13 Monocytes % 3.7 % 04/16/17 08:13 Eosinophils % 0.2 % 04/16/17 08:13 Basophils % 0.2 % 04/16/17 08:13 Neutrophils # 8.9 K/mcL (1.6-8.9) 04/16/17 08:13 Lymphocytes # 1.4 K/mcL (0.6-4.6) 04/16/17 08:13 Monocytes # 0.4 K/mcL (0.0-1.3) 04/16/17 08:13 Eosinophils # 0.0 K/mcL (0.0-0.6) 04/16/17 08:13 Basophils # 0.0 K/mcL (0.0-0.2) 04/16/17 08:13 Sodium 139 mEq/L (136-145) 04/16/17 08:13 Potassium 3.7 mEq/L (3.5-5.1) 04/16/17 08:13 Chloride 106 mEq/L (98-107) 04/16/17 08:13 Carbon Dioxide 25 mEq/L (23-29) 04/16/17 08:13 BUN 8 mg/dL (8-23) 04/16/17 08:13 Creatinine 0.64 mg/dL (0.60-1.20) 04/16/17 08:13 Est GFR ( Amer) > 60 (> 60) 04/16/17 08:13 Est GFR (Non-Af Amer) > 60 (> 60) 04/16/17 08:13 BUN/Creatinine Ratio 13 (6-26) 04/16/17 08:13 Glucose 174 mg/dL (70-105) H 04/16/17 08:13 POC Glucose 195 (58-89) H 04/16/17 07:52 Calculated Osmolality 291 (280-300) 04/16/17 08:13 Calcium 9.7 mg/dL (8.6-10.3) 04/16/17 08:13 Total Bilirubin 0.4 mg/dL (0.3-1.0) 04/16/17 08:13 AST 12 Units/L (13-39) L 04/16/17 08:13 ALT 13 Units/L (7-52) 04/16/17 08:13 Alkaline Phosphatase 83 Units/L (34-104) 04/16/17 08:13 Troponin I < 0.03 ng/mL (< 0.04) 04/16/17 08:13 Serum Total Protein 6.9 g/dL (6.4-8.9) 04/16/17 08:13 Albumin 4.2 g/dL (3.5-5.7) 04/16/17 08:13 Globulin 2.7 g/dL (2.4-3.5) 04/16/17 08:13 Albumin/Globulin Ratio 1.6 (1.1-2.2) 04/16/17 08:13 Triglycerides 128 mg/dL (< 150) 04/17/17 05:05 Cholesterol 157 mg/dL (< 200) 04/17/17 05:05 LDL Cholesterol, Calc 80 mg/dL (0-99) 04/17/17 05:05 VLDL Cholesterol, Calc 26 mg/dL (< 31) 04/17/17 05:05 HDL Cholesterol 51 mg/dL (40-59) 04/17/17 05:05 Cholesterol/HDL Ratio 3.1 (0-4.9) 04/17/17 05:05 Lipase 27 Units/L (11-82) 04/16/17 08:13 Urine Color Yellow (Yellow) 04/16/17 08:17 Urine Clarity Cloudy (Clear) A 04/16/17 08:17 Urine pH 8.0 pH Units (5.0-8.0) 04/16/17 08:17 Ur Specific [place] 1.015 (1.010-1.025) 04/16/17 08:17 Urine Protein Trace mg/dL (Neg-Trace) 04/16/17 08:17 Urine Glucose (UA) 250 mg/dL (Normal) H 04/16/17 08:17 Urine Ketones Negative mg/dL (Negative) 04/16/17 08:17 Urine Blood Negative (Negative) 04/16/17 08:17 Urine Nitrite Negative (Negative) 04/16/17 08:17 Urine Bilirubin Negative (Negative) 04/16/17 08:17 Urine Urobilinogen Normal mg/dL (Normal) 04/16/17 08:17 Ur Leukocyte Esterase Negative (Negative) 04/16/17 08:17 Urine Microscopic RBC 0-3 per hpf (0-3) 04/16/17 08:17 Urine Microscopic WBC 0-3 per hpf (0-3) 04/16/17 08:17 Ur Squamous Epith Cells Many per lpf (None-Few) H 04/16/17 08:17 Urine Bacteria None Seen per hpf (None-Few) 04/16/17 08:17 Hyaline Casts None Seen per lpf (None-Few) 04/16/17 08:17 Urine Opiates Screen Negative ng/mL (Vmzxwe=492) 04/16/17 08:17 Ur Barbiturates Screen Negative ng/mL (Crgpwd=791) 04/16/17 08:17 Ur Phencyclidine Scrn Negative ng/mL (Cutoff=25) 04/16/17 08:17 Ur Amphetamines Screen Negative ng/mL (Dsqrdf=1339) 04/16/17 08:17 U Benzodiazepines Scrn Negative ng/mL (Mcwurb=803) 04/16/17 08:17 Urine Cocaine Screen Negative ng/mL (Cutoff= 300) 04/16/17 08:17 U Marijuana (THC) Screen Negative ng/mL (Cutoff = 50) 04/16/17 08:17 Consult Discharge Plan - Plan Referrals: Barbara Gomez, QUICK MIXER OPERATOR [Primary Care Provider] -
--- NOTE | 2017-04-17 16:37 | Discharge Summary ---
Date of Encounter: 04/17/17 Time of Encounter: 16:35 - Discharge Diagnosis (1) Seizure-like activity Priority: Primary Status: Acute (2) Anxiety Priority: Secondary Status: Chronic (3) Bipolar disorder Priority: Secondary Status: Chronic Qualifiers: Active/Remission status: remission status unspecified Qualified Code(s): F31.9 - Bipolar disorder, unspecified (4) Hypertension Priority: Secondary Status: Chronic Qualifiers: Hypertension type: essential hypertension Qualified Code(s): I10 - Essential (primary) hypertension (5) Schizophrenia Priority: Secondary Status: Chronic Qualifiers: Schizophrenia type: unspecified Qualified Code(s): F20.9 - Schizophrenia, unspecified Hospital course: Ms. Jane is a 62 year old female with the above medical problems, who was admitted for seizure-like activity at home. Initial labs showed no acute abnormality. MRI brain showed Multiple tiny foci of susceptibility signal, which are distributed more peripherally, most compatible with microhemorrhages. She was loaded with Keppra and continued on IV Keppra for possible true seizures. SHe was evaluated by Neurology, had normal EEG, and findings less suspicious for seizures, Keppra was discontinued, Psychiatry evaluation was recommended, due to underlying multiple psychiatric issues including bipolar disorder and Schizophrenia. Psychiatry evaluation was completed; patient would benefit from inpatient Psychiatric admission, however she is not a threat to herself, so could be discharged home and f/up in 2 weeks as scheduled, with Behavioral Health, per Psychiatry. Upon my evaluation, patient was alert and answers a few questions appropriately , however does speak irrelevantly, mostly about God, and also obsessed about Klonopin despite explaining multiple times how and when she may be prescribed Klonopin after f/up as an outpatient. Patient refused to [facility] admission, patient and were agreeable to discharge home. After discharge order was placed, I was paged by RN that patient changed her mind and is now agreeable to go to [facility]; I have called [facility] who accepted the patient , pending bed availability. Discharge discussed with: patient, family - Time Spent with Patient Total time spent providing and/or coordinating discharge services: Greater than 30 minutes (40 min) - Discharge Medications Home Medications: Aspirin Enteric Coated [Aspirin EC] 81 mg PO DAILY 11/14/16 [History] hydrOXYzine HCl [Hydroxyzine HCl] 25 mg PO Q8H PRN 11/14/16 [History] hydroCHLOROthiazide [Hydrochlorothiazide] 12.5 mg PO DAILY 11/14/16 [History] Metoprolol XL (24 HR) Succ [Toprol Xl] 50 mg PO DAILY 04/16/17 [History] Simvastatin [Zocor] 10 mg PO QPM 04/16/17 [History] Allergies/Adverse Reactions: 3 Allergy/AdvReac Type Severity Reaction Status Date / Time Erythromycin Base Allergy Hives Verified 04/16/17 07:35 hydrocodone [From [place]] AdvReac Nausea Verified 04/16/17 07:35 quetiapine [From Seroquel] AdvReac Numbness Verified 04/16/17 13:12 Date of admission: 04/16/17 14:19 Primary care physician: Barbara Gomez CNP Consults: 04/16/17 16:17 Consult to Interpret Exam [CONS] Routine Consulting Provider: Navarro Pickens Consult to Interpret Exam: Interpret EEG Discharging clinician: Stephania Flores Anticipated date of discharge: 04/17/17 - Constitutional Vitals: Temp Pulse Resp BP Pulse Ox 98.1 F 75 15 124/66 96 04/17/17 15:08 04/17/17 15:08 04/17/17 15:08 04/17/17 15:08 04/17/17 15:08 General appearance: Present: mild distress, A&O X 3 (seems obsessed about Klonopin and insists on going home), no acute distress, answers questions appropriately - Cardiovascular Cardiovascular exam: Present: RRR, +S1, +S2. Absent: diastolic murmur, gallop, rubs, systolic murmur - Patient Status Disposition: Transfer Psychiatric Hosp Condition: Good Functional capacity at discharge: independent ambulation Overall status at discharge: patient is progressing back to baseline - Discharge Instructions Instructions: Acute Abdominal Pain (DC) Follow Up With: Barbara Gomez CNP [Primary Care Provider] - Additional Instructions: F/up with PCP in 1-2 weeks F/up with Psychiatry as scheduled, in 2 weeks - Diet and Activity Activity: resume usual activities as tolerated Diet: advance to your usual diet, low fat, low cholesterol, low salt diet
[2017-04-17] MEDS ORDERED: Haloperidol Lactate 5 MG/ML VIAL IM ONE (19:45)
[2017-04-17] MEDS ORDERED: Haloperidol Lactate 5 MG/ML VIAL ONE (19:54)
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
[2017-04-18] MEDS: Metoprolol XL (24 HR) Succ 50 MG TAB.ER.24H PO SCH (08:46)
[2017-04-18] MEDS: hydroCHLOROthiazide 25 MG TABLET PO SCH (08:47)
[2017-04-18] MEDS: Aspirin Enteric Coated 81 MG Tablet PO SCH (08:51)
[2017-04-18 12:17] VITALS: BP 166/77
[2017-04-18] MEDS ORDERED: D5% in Water 1,000 ML IVC PRN (13:35)
[2017-04-18] MEDS ORDERED: *HR* Dextrose 50 % in Water (Syg) 50 ML SYRINGE IVP PRN (13:35)
[2017-04-18] MEDS ORDERED: Dextrose Gel 15 GM/37.5 ML TUBE PO PRN ×2 (13:35)
[2017-04-18] MEDS ORDERED: hydroCHLOROthiazide 25 MG TABLET PO STA (13:42)
[2017-04-18] MEDS ORDERED: amLODIPine 5 MG TABLET PO SCH (13:45)
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
[2017-04-18] MEDS ORDERED: Insulin LISPRO 300 UNITS/3 ML VIAL SQ SCH ×2 (16:30→21:00)
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
--- NOTE | 2017-04-18 20:36 | Electrocardiograph Report ---
[address] [place] [id number] Test Date: 2017-04-16 Pat Name: Linda Jane Department: 103 Room: 3A33 Gender: F Supervisor Finishing: KUN : 1955 Requested By: Natividad Tolbert Order Number: [id number] Reading MD: Sonya Alvarado Measurements Intervals [place] Rate: 56 P: 70 RI: 171 QRS: 58 QRSD: 97 T: 51 QT: 420 QTc: 410 Interpretive Statements SINUS BRADYCARDIA Electronically Signed On 04-18-2017 20:35:02 EST by Sonya Alvarado
[2017-04-19] MEDS ORDERED: hydroCHLOROthiazide 25 MG TABLET PO SCH (09:00)
== END 2017-04-18 15:57 ==
LOC: 3BNU 07:32 → EMEROO 07:32 → SUATTDRO 14:19 → 3BNU 15:11 → 3ANU 04-17 04:50
PROVIDERS: ADMIT Registered Nurse; ATTEND Internal Medicine

== ENCOUNTER 2018-08-03 17:09 | Inpatient (IN) ==
[2018-08-03] MEDS ORDERED: 0.9 % Sodium Chloride 1,000 ML ONE ×3 (17:12→19:55)
[2018-08-03] MEDS ORDERED: 0.9 % Sodium Chloride 1,000 ML IVC ONE ×3 (17:19→18:46)
[2018-08-03 17:44] LABS: Hematocrit 45.7 % (35.3-44.9); Hemoglobin 14.8 g/dL (11.5-15.4); Mean Corpuscular HGB Conc 32.4 g/dL (31.6-35.5); Mean Corpuscular Hemoglobin 28.7 pg (28.0-33.3); Mean Corpuscular Volume 88.7 fL (83.0-100.0); Platelet Count 288 K/mcL (140-400); Red Blood Count 5.15 M/mcL (3.82-4.97); Red Cell Distribution Width 14.5 % (11.5-14.5)
[2018-08-03 17:53] LABS: Prothrombin Time 11.1 Seconds (9.4-12.1)
[2018-08-03 17:56] LABS: Activated Partial Thrombo Time 28.8 Seconds (26.0-36.0)
[2018-08-03 18:04] LABS: White Blood Count 12.3 K/mcL (4.3-11.1)
[2018-08-03 18:19] LABS: Acetaminophen < 10 mcg/mL (10-20); Alanine Aminotransferase 10 Units/L (7-52); Albumin 4.3 g/dL (3.5-5.7); Albumin/Globulin Ratio 1.4 (1.1-2.2); Alkaline Phosphatase 109 Units/L (34-104); Aspartate Amino Transferase 24 Units/L (13-39); BUN/Creatinine Ratio 4 (6-26); Bilirubin,Direct 0.1 mg/dL (0.0-0.2); Bilirubin,Indirect 0.2 mg/dL (0.0-1.2); Bilirubin,Total 0.3 mg/dL (0.3-1.0); Blood Urea Nitrogen 17 mg/dL (8-23); Calcium 9.4 mg/dL (8.6-10.3); Carbon Dioxide 28 mEq/L (23-29); Chloride 100 mEq/L (98-107); Creatine Kinase 2689 Units/L (30-223); Ethanol < 10 mg/dL (Less than 10); Glucose 160 mg/dL (70-105); Magnesium 1.8 mg/dL (1.6-2.6); Osmolality,Calculated 295 (280-300); Phosphorous 6.8 mg/dL (2.7-4.5); Potassium 3.1 mEq/L (3.5-5.1); Salicylate < 2.5 mg/dL (15.0-30.0); Sodium 140 mEq/L (136-145); Total Protein 7.3 g/dL (6.4-8.9); eGFR For African Americans 12 (> 60); eGFR For Non-African Americans 10 (> 60)
[2018-08-03 18:23] LABS: Basophils % 0.2 %; Eosinophils # 0.1 K/mcL (0.0-0.6); Eosinophils % 0.6 %; Immature Granulocytes % 0.4 % (0-4); Lymphocytes # 3.2 K/mcL (0.6-4.6); Lymphocytes % 24.5 %; Monocytes # 1.2 K/mcL (0.0-1.3); Monocytes % 9.1 %; Neutrophils # 8.5 K/mcL (1.6-8.9); Segmented Neutrophils % 65.2 %
[2018-08-03 18:39] LABS: Troponin I 0.04 ng/mL (< 0.04)
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
[2018-08-03 18:51] LABS: Thyroid Stimulating Hormone 0.433 mcIU/mL (0.340-5.600)
[2018-08-03] MEDS ORDERED: Aspirin 81 MG TAB.CHEW PO STA (19:11)
[2018-08-03 19:13] LABS: VBG HCO3 23 mEq/L (21-27); VBG PCO2 47 mmHg (41-51); VBG PO2 181 mmHg (25-50)
[2018-08-03 19:33] LABS: Bilirubin,Urine Negative (Negative); Blood,Urine Large (Negative); Clarity,Urine Clear (Clear); Color,Urine Yellow (Yellow); Glucose,Urine (UA) Normal (Normal); Ketones,Urine Negative (Negative); Leukocyte Esterase,Urine Negative (Negative); Nitrite,Urine Negative (Negative); Protein,Urine 30 mg/dL (Neg-Trace); Specific Gravity,Urine 1.007 (1.010-1.025); Urobilinogen,Urine Normal (Normal)
[2018-08-03 19:45] LABS: Amphetamine Screen,Urine Negative ng/mL (Cutoff=1000); Barbiturate Screen,Urine Negative ng/mL (Cutoff=200); Benzodiazepines Screen,Urine Negative ng/mL (Cutoff=200); Cannabinoid Screen,Urine Negative ng/mL (Cutoff = 50); Cocaine Screen,Urine Negative ng/mL (Cutoff= 300); Opiate Screen,Urine Negative ng/mL (Cutoff=300); Phencyclidine Screen,Urine Negative ng/mL (Cutoff=25)
[2018-08-03 19:49] LABS: Amorphous Sediment,Urine Few (Few); RBC,Urine 15-30 per hpf (0-3)
[2018-08-03] MEDS: 0.9 % Sodium Chloride 1,000 ML IVC SCH (19:59)
[2018-08-03] MEDS ORDERED: Naloxone 0.4 MG/ML INJ IVP PRN (20:12)
[2018-08-03] MEDS ORDERED: Acetaminophen 325 MG TABLET PO PRN (20:12)
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
[2018-08-03] MEDS: Metoprolol XL (24 HR) Succ 50 MG TAB.ER.24H PO SCH ×2 (21:21→21:32)
[2018-08-03] MEDS: *HR* Heparin 5,000 UNIT/ML VIAL SQ SCH (21:21)
[2018-08-03 23:18] LABS: Troponin I 0.03 ng/mL (< 0.04)
[2018-08-04] MEDS: 0.9 % Sodium Chloride 1,000 ML IVC SCH ×4 (01:42→22:17)
[2018-08-04] MEDS: *HR* Heparin 5,000 UNIT/ML VIAL SQ SCH ×3 (05:50→22:12)
--- NOTE | 2018-08-04 07:40 | Internal Med Progress Note ---
Hospitalist Progress Note - Encounter Date of Encounter: 08/04/18 Time of Encounter: 07:34 - Subjective Interval History: Patient was admitted for acute renal failure, altered mental status, she slept last night. But she is able to response to me, oriented and knows she is in the hospital. She denies any pain shortness of breath. Her is at bedside, her reports since discharge patient was not eating or drinking over last 3 days. Lab is pending - Exam Vitals: Temp Pulse Resp BP Pulse Ox 98.4 F 67 17 104/66 99 08/04/18 07:05 08/04/18 07:05 08/04/18 07:05 08/04/18 07:05 08/04/18 07:05 Exam: CONSTITUTIONAL: patient appears as an age appropriate female in no acute distress. EYES Clear sclerae, bilateral pupils are equal, reactive to light. EMOI. RESPIRATORY: No accessory muscle use, bilateral clear to auscultation, no wheezing, no crackles/rales. CARDIOVASCULAR: Regular heart rate, normal S1 and S2, no murmurs GASTROINTESTINAL: bowel sounds present, soft, no tenderness. MUSCULOSKELETAL: Joints in normal range of motion, no clubbing, no edema, no cyanosis. Bilateral peripheral pulses 2+. NEUROLOGIC: CN II to XII are grossly intact, no focal neurological deficit. DVT Prophylaxis: Heparin subcutaneous - Summary of Assessment and Plan Summary of Assessment and Plan: Linda Jane is a 63 year old woman with multiple comorbidities loading hypertension, hyperlipidemia, schizophrenia, bipolar disorder, CVA who has been admitted here multiple times of recent due to mental status changes and weakness. 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 She was evaluated by both neurology and psychiatry discharge with outpatient follow-up 2 days ago. Patient was just discharged on 12/01 from [facility]. Since disc harge she has not been eating or drinking due to the taste change. Patient was admitted for acute renal failure hypotension dehydration altered mental status yesterday 1.Acute metabolic encephalopathy: CT Head is negative. she is more alert and knows at hospital, discussed with her , she was still taking Geodon 20 mg BID at home, will hold for now, she has mnegative CXR and UA did not show infection 2.Hypotension: Secondary to hypovolemic state from poor water intake as confirmed by the patient and her . Has now improved with fluid resuscitation and will continue. 3.AFR/ ALMA: Pre-renal in etiology from poor effective volemia. baseline Cr was 0.5, pending lab today, she is making good urine. 4. mild Rhabdomyolysis: Likely from muscle breakdown during her state of immobility. Will hold statins. Continue IVF. 5.Elevated troponin: Suspect secondary to demand state from hypotensive picture she had. Clinically asymptomatic otherwise. Suspect EKG changes are due to the same. Will monitor on telemetry and trend enzymes as we replete her volume. 325mg ASA received. 6. Lactic acidemia: No signs of infection present. trending down after IVF 7. Leukocytosis: Also without evidence of an infectious cause. Likely from hemoconcentration in dehydration. pending lab today 8.anxiety continnue prn clonazepam 9. Impaired congnition 10. Hypokalemia, pending lab today, replace as need 11. metabolic acidosis from ARF - Time Spent with Patient Total time spent is greater than 50% in coordination of care (as documented) at patient's floor/unit and/or counseling patient: 25 - 35 minutes Plan of Care Discussed with: family Internal Medicine: Result - Labs CBC & Chem 7: 08/03/18 17:19 08/03/18 17:32 Labs: Short CBC 08/03/18 Range/Units 17:19 WBC 12.3 H D (4.3-11.1) K/mcL Hgb 14.8 (11.5-15.4) g/dL Hct 45.7 H (35.3-44.9) % Plt Count 288 (140-400) K/mcL Neutrophils # 8.5 (1.6-8.9) K/mcL BMP 08/03/18 17:32 Sodium 140 Potassium 3.1 L Chloride 100 Carbon Dioxide 28 BUN 17 Creatinine 4.38 H Glucose 160 H Calcium 9.4 Cardiac Enzymes 08/03/18 08/03/18 Range/Units 17:32 22:40 Troponin I 0.04 H* 0.03 (< 0.04) ng/mL Liver Function 08/03/18 Range/Units 17:32 Total Bilirubin 0.3 (0.3-1.0) mg/dL Direct Bilirubin 0.1 (0.0-0.2) mg/dL AST 24 (13-39) Units/L ALT 10 (7-52) Units/L Alkaline Phosphatase 109 H (34-104) Units/L Albumin 4.3 (3.5-5.7) g/dL Urine 08/03/18 Range/Units 19:20 Urine Color Yellow (Yellow) Urine Clarity Clear (Clear) Urine pH 6.0 (5.0-8.0) pH Units Ur Specific [place] 1.007 L (1.010-1.025) Urine Protein 30 H (Neg-Trace) mg/dL Urine Glucose (UA) Normal (Normal) mg/dL - ABG Interpretation ABG results: PT/INR, D-dimer PT 11.1 Seconds (9.4-12.1) 08/03/18 17:19 - Impressions Impressions Chest X-Ray 08/03/18 17:20 IMPRESSION: No acute cardiopulmonary disease. D/ / Ryan Bella MD / Ryan Bella MD Interpreting Provider: Ryan Bella MD Head CT 08/03/18 17:20 IMPRESSION: No acute intracranial abnormality. D/ / Andrea Giraldo MD / Andrea Giraldo MD Interpreting Provider: Andrea Giraldo MD Consult Discharge Plan - Plan Referrals: NONE,PCP [Primary Care Provider] -
[2018-08-04 07:54] LABS: Basophils % 0.2 %; Eosinophils # 0.3 K/mcL (0.0-0.6); Eosinophils % 3.4 %; Hematocrit 35.3 % (35.3-44.9); Immature Granulocytes % 0.4 % (0-4); Lymphocytes # 2.6 K/mcL (0.6-4.6); Lymphocytes % 30.2 %; Mean Corpuscular HGB Conc 31.7 g/dL (31.6-35.5); Mean Corpuscular Hemoglobin 28.1 pg (28.0-33.3); Mean Corpuscular Volume 88.7 fL (83.0-100.0); Mean Platelet Volume 11.5 fL (9.4-12.4); Monocytes # 0.9 K/mcL (0.0-1.3); Neutrophils # 4.6 K/mcL (1.6-8.9); Platelet Count 181 K/mcL (140-400); Red Blood Count 3.98 M/mcL (3.82-4.97); Red Cell Distribution Width 14.4 % (11.5-14.5); Segmented Neutrophils % 54.8 %; White Blood Count 8.4 K/mcL (4.3-11.1)
[2018-08-04 08:10] LABS: Hemoglobin 11.2 g/dL (11.5-15.4)
[2018-08-04 08:39] LABS: Calcium 7.7 mg/dL (8.6-10.3); Magnesium 1.4 mg/dL (1.6-2.6); Phosphorous 3.8 mg/dL (2.7-4.5)
[2018-08-04] MEDS: Aspirin Enteric Coated 81 MG Tablet PO SCH (09:01)
[2018-08-04] MEDS: Metoprolol XL (24 HR) Succ 50 MG TAB.ER.24H PO SCH ×2 (09:01→22:13)
[2018-08-04] MEDS: traMADol 50 MG TABLET PO PRN ×2 (17:11→22:22)
--- NOTE | 2018-08-04 21:31 | Electrocardiograph Report ---
[address] [place], [place] [address] Test Date: 2018-08-03 Pat Name: Linda Jane Department: [id number] Room: 2A12 Gender: F Comb Setter: : 1955 Requested By: Benedict Dodge Order Number: [id number] Reading MD: Dean Moser Measurements Intervals [place] Rate: 70 P: 52 IA: 153 QRS: 62 QRSD: 98 T: -11 QT: 429 QTc: 463 Interpretive Statements Sinus rhythm Nonspecific repol abnormality, diffuse leads Electronically Signed On 08-04-2018 21:30:00 EDT by Dean Moser
[2018-08-04] MEDS: clonazePAM 0.5 MG TABLET PO PRN (22:12)
--- NOTE | 2018-08-05 02:52 | Event Note ---
Date of Encounter: 08/04/18 Time of Encounter: 19:20 Alerted by patient's nurse TORI Pretty that patient had fallen recently at home. PT/OT stated patient could hardly move right forearm. Stat x-ray of the right upper extremity ordered which showed no acute osseous abnormality. Patient's RUE remains very edematous and bruised as well as warm to the touch. Nurse instructed to order stat Doppler of the patient's RUE in the a.m. to r/o possible DVT. Nurse instructed to continue monitoring the pt. very closely overnight and alert me immediately of any adverse changes.
[2018-08-05 05:09] LABS: Basophils % 0.3 %; Eosinophils # 0.5 K/mcL (0.0-0.6); Eosinophils % 4.4 %; Hematocrit 36.2 % (35.3-44.9); Hemoglobin 11.7 g/dL (11.5-15.4); Immature Granulocytes % 0.6 % (0-4); Lymphocytes # 2.4 K/mcL (0.6-4.6); Lymphocytes % 23.9 %; Mean Corpuscular HGB Conc 32.3 g/dL (31.6-35.5); Mean Corpuscular Hemoglobin 28.5 pg (28.0-33.3); Mean Corpuscular Volume 88.3 fL (83.0-100.0); Mean Platelet Volume 11.8 fL (9.4-12.4); Monocytes # 1.1 K/mcL (0.0-1.3); Monocytes % 10.7 %; Neutrophils # 6.1 K/mcL (1.6-8.9); Platelet Count 161 K/mcL (140-400); Red Cell Distribution Width 13.5 % (11.5-14.5); Segmented Neutrophils % 60.1 %; White Blood Count 10.2 K/mcL (4.3-11.1)
[2018-08-05 05:25] LABS: BUN/Creatinine Ratio 12 (6-26); Blood Urea Nitrogen 7 mg/dL (8-23); Calcium 7.8 mg/dL (8.6-10.3); Carbon Dioxide 23 mEq/L (23-29); Chloride 109 mEq/L (98-107); Glucose 116 mg/dL (70-105); Magnesium 1.5 mg/dL (1.6-2.6); Osmolality,Calculated 281 (280-300); Potassium 4.5 mEq/L (3.5-5.1); Sodium 136 mEq/L (136-145); eGFR For African Americans > 60 (> 60); eGFR For Non-African Americans > 60 (> 60)
[2018-08-05] MEDS: 0.9 % Sodium Chloride 1,000 ML IVC SCH (06:09)
[2018-08-05] MEDS: *HR* Heparin 5,000 UNIT/ML VIAL SQ SCH ×3 (06:09→20:09)
--- NOTE | 2018-08-05 09:16 | Internal Med Progress Note ---
Hospitalist Progress Note - Encounter Date of Encounter: 08/05/18 Time of Encounter: 09:13 - Subjective Interval History: I have seen and evaluated the patient at bedside. patient continues to report RUE pain, and being unable to move the extremity due to discomfort. denies chest pain or shortness of breath. reported falling at home from a couch. - Exam Vitals: Temp Pulse Resp BP Pulse Ox 97.9 F 68 17 107/67 100 08/05/18 07:03 08/05/18 07:03 08/05/18 07:03 08/05/18 07:03 08/05/18 07:03 Exam: Vitals: Reviewed General: Alert and oriented x4. In mild distress due to RUE pain Cardiovascular: RRR, normal S1 & S2, no rubs, murmurs or gallops. Lungs: CTA b/l, no wheezes or crackles. Abdomen: Soft, non-tender, no rigidity. Extremities: edema, decreased ROM of the RUE, no erythema. Neurological: Normal cognition and motor skills. Rest of the physical exam is non contributory - Assessment and Plan (1) Right upper limb pain Current Visit: Yes Status: Acute Assessment and Plan: patient reported pain of the RUE and decreased ROM. edema on examination. venous dupplex of the upper extr ordered to r/o DVT. continue tramadol for pain control (2) Rhabdomyolysis Current Visit: Yes Status: Resolved Assessment and Plan: will continue IV hydration. Patient is on 0.9NS decrease rate to 75ml/hr x1 more bag. encourage oral intake. (3) Bipolar disorder Current Visit: No Status: Chronic Assessment and Plan: Patient is on clonazepam 0.5 mg by mouth twice a day. (4) Anxiety Current Visit: No Status: Chronic (5) ALMA (acute kidney injury) Current Visit: Yes Status: Resolved (6) Altered mental status Current Visit: Yes Status: Resolved DVT Prophylaxis: patient is on heparin subQ. - Summary of Assessment and Plan Summary of Assessment and Plan: patient to remain in the hospital for at least 24 more hours to continue IV fluids hydration. potential discharge to ECF/SNF 1-2 days. - Time Spent with Patient Total time spent is greater than 50% in coordination of care (as documented) at patient's floor/unit and/or counseling patient: Greater than 35 minutes (40) Plan of Care Discussed with: patient (and the nurse.) Internal Medicine: Result - Labs CBC & Chem 7: 08/05/18 04:39 08/05/18 04:39 Labs: Short CBC 08/05/18 Range/Units 04:39 WBC 10.2 (4.3-11.1) K/mcL Hgb 11.7 (11.5-15.4) g/dL Hct 36.2 (35.3-44.9) % Plt Count 161 (140-400) K/mcL Neutrophils # 6.1 (1.6-8.9) K/mcL BMP 08/05/18 04:39 Sodium 136 Potassium 4.5 D Chloride 109 H Carbon Dioxide 23 BUN 7 L Creatinine 0.59 L Glucose 116 H Calcium 7.8 L - ABG Interpretation ABG results: PT/INR, D-dimer PT 11.1 Seconds (9.4-12.1) 08/03/18 17:19 - Impressions Impressions Forearm X-Ray 08/04/18 19:46 IMPRESSION: No acute osseous abnormality. D/ / Sandip Edwards MD / Sandip Edwards MD Interpreting Provider: Sandip Edwards MD Consult Discharge Plan - Plan Referrals: NONE,PCP [Primary Care Provider] - (2) Rhabdomyolysis Qualifiers: Rhabdomyolysis type: non-traumatic Qualified Code(s): M62.82 - Rhabdomyolysis (3) Bipolar disorder Qualifiers: Active/Remission status: currently active Current bipolar episode type: manic Current episode severity: severe Psychotic features: with psychotic features Qualified Code(s): F31.2 - Bipolar disorder, current episode manic severe with psychotic features (6) Altered mental status Qualifiers: Altered mental status type: unspecified Qualified Code(s): R41.82 - Altered mental status, unspecified
[2018-08-05] MEDS: Aspirin Enteric Coated 81 MG Tablet PO SCH (09:17)
[2018-08-05] MEDS: Metoprolol XL (24 HR) Succ 50 MG TAB.ER.24H PO SCH ×2 (09:17→20:08)
[2018-08-05] MEDS ORDERED: 0.9 % Sodium Chloride 1,000 ML IVC SCH (09:18)
[2018-08-05] MEDS ORDERED: Ondansetron 4 MG/2 ML VIAL IVP ONE (19:36)
[2018-08-05] MEDS: clonazePAM 0.5 MG TABLET PO PRN (20:22)
[2018-08-06] MEDS: *HR* Heparin 5,000 UNIT/ML VIAL SQ SCH (05:49)
[2018-08-06 07:51] VITALS: BP 131/68
[2018-08-06 09:16] LABS: BUN/Creatinine Ratio 9 (6-26); Blood Urea Nitrogen 5 mg/dL (8-23); Calcium 9.5 mg/dL (8.6-10.3); Carbon Dioxide 25 mEq/L (23-29); Chloride 105 mEq/L (98-107); Glucose 119 mg/dL (70-105); Magnesium 1.4 mg/dL (1.6-2.6); Osmolality,Calculated 282 (280-300); Potassium 4.5 mEq/L (3.5-5.1); Sodium 137 mEq/L (136-145); eGFR For African Americans > 60 (> 60); eGFR For Non-African Americans > 60 (> 60)
[2018-08-06] MEDS: Aspirin Enteric Coated 81 MG Tablet PO SCH (10:26)
[2018-08-06] MEDS: traMADol 50 MG TABLET PO PRN (10:26)
[2018-08-06] MEDS: Metoprolol XL (24 HR) Succ 50 MG TAB.ER.24H PO SCH (10:27)
--- NOTE | 2018-08-06 11:02 | Discharge Summary ---
Orders not resulted at time of discharge: Pending orders 08/03/18 17:47 Culture,Blood [BC] Stat Date of Encounter: 08/06/18 Time of Encounter: 11:00 - Discharge Diagnosis (1) Right upper limb pain Priority: Secondary Status: Resolved (2) Rhabdomyolysis Priority: Secondary Status: Resolved Qualifiers: Rhabdomyolysis type: non-traumatic Qualified Code(s): M62.82 - Rhabdomyolysis (3) Bipolar disorder Priority: Secondary Status: Chronic Qualifiers: Active/Remission status: currently active Current bipolar episode type: manic Current episode severity: severe Psychotic features: with psychotic features Qualified Code(s): F31.2 - Bipolar disorder, current episode manic severe with psychotic features (4) Anxiety Priority: Secondary Status: Chronic (5) ALMA (acute kidney injury) Priority: Secondary Status: Resolved (6) Altered mental status Priority: Secondary Status: Resolved Qualifiers: Altered mental status type: unspecified Qualified Code(s): R41.82 - Altered mental status, unspecified (7) Superficial vein thrombosis Priority: Secondary Status: Acute Assessment and Plan: right upper extremity. Hospital course: Ms. Jane is a 63 year old female multiple commodities including hypertension, hyperlipidemia, schizophrenia, bipolar disorder, CVA who has been admitted here multiple times of recent due to mental status changes and weakness. 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 Patient was brought to the hospital after she was found to be could and clammy at home and hypotensive by her . patient was admitted to the hospital due to hypotension secondary to hypovolemia due to poor oral intake. patient was managed with IV fluid hydration. Patient's reported the patient fell at home the previous day. Patient was found to have ALMA, due to Rhabdomyolisis. Patient was managed with IV hydration with resolution of her symptoms. During this admission patient also reported pain on her RUE and venous dupplex done: Right upper extremity: normal deep exam. Upper extremity abnormal superficial exam: right Basilic vein acute thrombosis. Right upper extremity: normal deep exam. Pain on the right upper extr has improved. PT/OT evaluated the patient and recommended ECF but patient refused. Patient is hemodynamically stable to be discharged home. - Time Spent with Patient Total time spent providing and/or coordinating discharge services: Time spent: Greater than 30 minutes (35) - Discharge Medications Prescriptions: Continued Aspirin Enteric Coated [Aspirin EC] 81 mg PO DAILY hydroCHLOROthiazide [Hydrochlorothiazide] 12.5 mg PO DAILY Metoprolol XL (24 HR) Succ [Toprol Xl] 25 mg PO BID Simvastatin [Zocor] 10 mg PO DAILY Quetiapine Fumarate [Seroquel] 50 mg PO HS PRN 30 Days #20 tablet PRN Reason: Insomnia clonazePAM [Klonopin] 0.5 mg PO BID PRN PRN Reason: Anxiety Home Medications: Aspirin Enteric Coated [Aspirin EC] 81 mg PO DAILY 11/14/16 [History] hydroCHLOROthiazide [Hydrochlorothiazide] 12.5 mg PO DAILY 11/14/16 [History] Metoprolol XL (24 HR) Succ [Toprol Xl] 25 mg PO BID 04/16/17 [History] Simvastatin [Zocor] 10 mg PO DAILY 03/08/18 [History] Quetiapine Fumarate [Seroquel] 50 mg PO HS PRN 30 Days #20 tablet 08/01/18 [Rx] clonazePAM [Klonopin] 0.5 mg PO BID PRN 08/03/18 [History] Allergies/Adverse Reactions: Allergy/AdvReac Type Severity Reaction Status Date / Time Erythromycin [place] Allergy Hives Verified 07/28/18 20:03 [place] Allergy See Verified 07/28/18 20:03 Comments hydrocodone [From [place]] AdvReac Nausea Verified 07/28/18 20:03 quetiapine [From Seroquel] AdvReac Numbness Verified 07/28/18 20:03 Date of admission: 08/03/18 21:04 Primary care physician: PCP NONE Consults: 08/03/18 21:05 Consult to Nutrition [CONS] Routine Comment: Lost ~33 pounds d/t poor appetite Consulting Provider: NUTRITION Reason for Dietary Consult: MST Score Consult to Regional Marketing Director [CONS] Routine Reason for SW Consult: Possible need for therapy/outpatient services. 08/04/18 07:50 Consult to Occupational Therapy [CONS] Routine Comment: Evaluate, develop and implement POC Reason for Consult: discharge Does patient have active BEDREST order?: No Is patient medically & hemodynamically stable?: Yes Patient assessed for mobility or mobilized this visit?: Yes Consult to Physical Therapy [CONS] Routine Comment: Evaluate, develop and implement POC Reason for Consult: weakness Does patient have active BEDREST order?: No Is patient medically & hemodynamically stable?: Yes Patient assessed for mobility or mobilized this visit?: Yes - Constitutional Vitals: Temp Pulse Resp BP Pulse Ox 97.9 F 69 18 131/68 96 08/06/18 07:50 08/06/18 07:50 08/06/18 07:50 08/06/18 07:50 08/06/18 07:50 Exam: Vitals: Reviewed General: Alert and oriented x4. no acute distress Cardiovascular: RRR, normal S1 & S2, no rubs, murmurs or gallops. Lungs: CTA b/l, no wheezes or crackles. Abdomen: Soft, non-tender, no rigidity. Extremities: edema on the RUE improved, full ROM of the RUE, no erythema. Neurological: No focal neurological abnormalities Rest of the physical exam is non contributory - Patient Status Disposition: Home Health Service Condition: Fair Functional capacity at discharge: independent ambulation Overall status at discharge: patient is progressing back to baseline - Discharge Instructions Follow Up With: NONE,PCP [Primary Care Provider] - - Diet and Activity Activity: as per physical therapy Diet: low salt diet
--- NOTE | 2018-08-06 11:15 | Physician Discharge Referral ---
Home Health/Hosp Referral Info Transfer to: Home Health - Diagnosis (1) Right upper limb pain Priority: Secondary Status: Resolved (2) Rhabdomyolysis Priority: Primary Status: Resolved (3) Bipolar disorder Priority: Primary Status: Chronic (4) Anxiety Priority: Secondary Status: Chronic (5) ALMA (acute kidney injury) Priority: Primary Status: Resolved (6) Altered mental status Priority: Secondary Status: Resolved (7) Superficial vein thrombosis Priority: Secondary Status: Acute - Respiratory Orders None Smoking Cessation: Smoking cessation has been advised. For more information, call the [place] Tobacco Quit Line at 6-329-PXDVNOW. - Diet/Nutrition Diet/Nutrition Orders: Regular - Activity Activity Orders: Ambulate - Services Needed Following services are medically necessary services: Home Health Aide, Physical Therapy, Occupational Therapy - Transfer Medications Home Medications: Aspirin Enteric Coated [Aspirin EC] 81 mg PO DAILY 11/14/16 [History] hydroCHLOROthiazide [Hydrochlorothiazide] 12.5 mg PO DAILY 11/14/16 [History] Metoprolol XL (24 HR) Succ [Toprol Xl] 25 mg PO BID 04/16/17 [History] Simvastatin [Zocor] 10 mg PO DAILY 03/08/18 [History] Quetiapine Fumarate [Seroquel] 50 mg PO HS PRN 30 Days #20 tablet 08/01/18 [Rx] clonazePAM [Klonopin] 0.5 mg PO BID PRN 08/03/18 [History] Allergies/Adverse Reactions: Allergy/AdvReac Type Severity Reaction Status Date / Time Erythromycin Base Allergy Hives Verified 07/28/18 20:03 [place] Allergy See Verified 07/28/18 20:03 Comments hydrocodone [From [place]] AdvReac Nausea Verified 07/28/18 20:03 quetiapine [From Seroquel] AdvReac Numbness Verified 07/28/18 20:03 Certification: Further, I certify that my clinical findings support that this patient is homebound (i.e. absences from home require considerable and taxing effort and are for medical reasons or latter day services or infrequently or short duration when for other reasons) because: Homebound Reason: Patient requires assistance of a person or device to safely leave home Attestation: My signature below is to certify that this patient is under my care and that I, or nurse practitioner, or a physician's pediatric assistant working with me, has a [id number] encounter with this patient.
== END 2018-08-06 13:56 | disposition home health service (06) | DRG 557 ==
LOC: 2ANU 17:09 → EMEROOARM 17:09 → 2ANU 20:31 → SUATTDRO 21:04
PROVIDERS: ADMIT Internal Medicine; ATTEND Internal Medicine

== ENCOUNTER 2018-12-26 10:43 | Observation (INO) ==
[2018-12-26 11:25] LABS: Basophils % 0.2 %; Eosinophils # 0.1 K/mcL (0.0-0.6); Eosinophils % 0.7 %; Hematocrit 37.6 % (35.3-44.9); Hemoglobin 13.3 g/dL (11.5-15.4); Immature Granulocytes % 0.4 % (0-4); Lymphocytes # 1.7 K/mcL (0.6-4.6); Lymphocytes % 16.4 %; Mean Corpuscular HGB Conc 35.4 g/dL (31.6-35.5); Mean Corpuscular Volume 84.9 fL (83.0-100.0); Mean Platelet Volume 9.8 fL (9.4-12.4); Monocytes # 0.8 K/mcL (0.0-1.3); Monocytes % 7.4 %; Neutrophils # 7.6 K/mcL (1.6-8.9); Platelet Count 236 K/mcL (140-400); Red Blood Count 4.43 M/mcL (3.82-4.97); Red Cell Distribution Width 13.5 % (11.5-14.5); Segmented Neutrophils % 74.9 %; White Blood Count 10.2 K/mcL (4.3-11.1)
[2018-12-26 11:43] LABS: Magnesium 1.6 mg/dL (1.6-2.6)
[2018-12-26 11:45] LABS: Bilirubin,Urine Negative (Negative); Blood,Urine Small (Negative); Clarity,Urine Clear (Clear); Color,Urine Yellow (Yellow); Glucose,Urine (UA) Normal (Normal); Ketones,Urine Negative (Negative); Leukocyte Esterase,Urine Negative (Negative); Nitrite,Urine Negative (Negative); Protein,Urine Negative (Neg-Trace); Specific Gravity,Urine 1.011 (1.010-1.025); Urobilinogen,Urine Normal (Normal)
[2018-12-26 11:46] LABS: Alanine Aminotransferase 6 Units/L (7-52); Albumin 3.9 g/dL (3.5-5.7); Albumin/Globulin Ratio 1.3 (1.1-2.2); Alkaline Phosphatase 115 Units/L (34-104); Aspartate Amino Transferase 10 Units/L (13-39); BUN/Creatinine Ratio 7 (6-26); Bilirubin,Indirect 0.6 mg/dL (0.0-1.0); Bilirubin,Total 0.6 mg/dL (0.3-1.0); Blood Urea Nitrogen 4 mg/dL (8-23); Calcium 9.8 mg/dL (8.6-10.3); Carbon Dioxide 26 mEq/L (23-29); Chloride 105 mEq/L (98-107); Ethanol < 10 mg/dL (Less than 10); Globulin 2.9 g/dL (2.4-3.5); Glucose 123 mg/dL (70-105); Osmolality,Calculated 292 (280-300); Potassium 3.2 mEq/L (3.5-5.1); Sodium 142 mEq/L (136-145); Total Protein 6.8 g/dL (6.4-8.9); Troponin I 0.03 ng/mL (< 0.04); eGFR For African Americans > 60 (> 60); eGFR For Non-African Americans > 60 (> 60)
[2018-12-26 11:47] LABS: Bacteria,Urine None Seen per hpf (None-Few); Hyaline Casts,Urine None Seen per lpf (None-Few); RBC,Urine 0-3 per hpf (0-3); Squamous Epithelial Cell,Urine Many per lpf (None-Few); WBC,Urine 0-3 per hpf (0-3)
[2018-12-26] MEDS ORDERED: Naloxone 0.4 MG/ML INJ IVP PRN (12:31)
[2018-12-26] MEDS ORDERED: Aspirin Enteric Coated 81 MG Tablet PO SCH (12:43)
[2018-12-26] MEDS ORDERED: 0.9 % Sodium Chloride 1,000 ML IVC SCH (12:45)
[2018-12-26 13:16] LABS: VBG HCO3 26 mEq/L (21-27); VBG PCO2 35 mmHg (41-51); VBG PH 7.47 pH Units (7.32-7.42); VBG PO2 217 mmHg (25-50)
[2018-12-26] MEDS ORDERED: clonazePAM 1 MG TABLET PO PRN (14:18)
[2018-12-26 14:51] VITALS: BP 165/92
[2018-12-26 17:12] LABS: Albumin 3.6 g/dL (3.5-5.7); Albumin/Globulin Ratio 1.3 (1.1-2.2); Bilirubin,Direct 0.1 mg/dL (0.0-0.2); Bilirubin,Indirect 0.4 mg/dL (0.0-1.0); Bilirubin,Total 0.5 mg/dL (0.3-1.0); Globulin 2.8 g/dL (2.4-3.5); Total Protein 6.4 g/dL (6.4-8.9)
[2018-12-26 17:23] LABS: Amphetamine Screen,Urine Negative ng/mL (Cutoff=1000); Barbiturate Screen,Urine Negative ng/mL (Cutoff=200); Benzodiazepines Screen,Urine Negative ng/mL (Cutoff=200); Cannabinoid Screen,Urine Negative ng/mL (Cutoff = 50); Cocaine Screen,Urine Negative ng/mL (Cutoff= 300); Opiate Screen,Urine Negative ng/mL (Cutoff=300); Phencyclidine Screen,Urine Negative ng/mL (Cutoff=25)
[2018-12-26] MEDS ORDERED: Perflutren Lipid Microsphere 1.3 ML in 0.9 % Sodium Chloride 8.7 ML IVP ONE (17:37)
[2018-12-26] MEDS ORDERED: clonazePAM 1 MG TABLET PO SCH (21:00)
[2018-12-26] MEDS ORDERED: Ziprasidone 20 MG CAPSULE PO SCH (21:00)
[2018-12-27] MEDS ORDERED: Divalproex (24 HR) 500 MG TABLET PO SCH (09:00)
[2018-12-27] MEDS ORDERED: Metoprolol XL (24 HR) Succ 50 MG TAB.ER.24H PO SCH (09:00)
[2018-12-27] MEDS ORDERED: Ziprasidone 20 MG CAPSULE PO SCH (09:00)
== END 2018-12-26 22:45 | disposition left against medical advice (07) ==
LOC: EMEROOARM 10:43 → 3BNU 10:43
PROVIDERS: ADMIT Internal Medicine; ATTEND Internal Medicine

== ENCOUNTER 2018-12-28 22:17 | Inpatient (IN) ==
[2018-12-28 23:19] LABS: Basophils % 0.4 %; Eosinophils # 0.1 K/mcL (0.0-0.6); Eosinophils % 0.9 %; Hematocrit 41.6 % (35.3-44.9); Hemoglobin 14.3 g/dL (11.5-15.4); Immature Granulocytes % 0.5 % (0-4); Lymphocytes # 1.8 K/mcL (0.6-4.6); Lymphocytes % 20.5 %; Mean Corpuscular HGB Conc 34.4 g/dL (31.6-35.5); Mean Corpuscular Hemoglobin 29.8 pg (28.0-33.3); Mean Corpuscular Volume 86.7 fL (83.0-100.0); Mean Platelet Volume 9.8 fL (9.4-12.4); Monocytes # 0.8 K/mcL (0.0-1.3); Monocytes % 9.3 %; Neutrophils # 5.8 K/mcL (1.6-8.9); Platelet Count 230 K/mcL (140-400); Red Cell Distribution Width 13.8 % (11.5-14.5); Segmented Neutrophils % 68.4 %; White Blood Count 8.5 K/mcL (4.3-11.1)
[2018-12-28 23:27] LABS: Activated Partial Thrombo Time 32.9 Seconds (26.0-36.0)
[2018-12-28 23:52] LABS: Alanine Aminotransferase 8 Units/L (7-52); Albumin 3.9 g/dL (3.5-5.7); Albumin/Globulin Ratio 1.3 (1.1-2.2); Alkaline Phosphatase 91 Units/L (34-104); Aspartate Amino Transferase 13 Units/L (13-39); BUN/Creatinine Ratio 18 (6-26); Bilirubin,Direct 0.1 mg/dL (0.0-0.2); Bilirubin,Indirect 0.5 mg/dL (0.0-1.0); Bilirubin,Total 0.6 mg/dL (0.3-1.0); Blood Urea Nitrogen 11 mg/dL (8-23); Calcium 9.6 mg/dL (8.6-10.3); Carbon Dioxide 24 mEq/L (23-29); Chloride 105 mEq/L (98-107); Ethanol < 10 mg/dL (Less than 10); Glucose 98 mg/dL (70-105); Magnesium 1.9 mg/dL (1.6-2.6); Osmolality,Calculated 291 (280-300); Potassium 3.6 mEq/L (3.5-5.1); Sodium 141 mEq/L (136-145); Total Protein 6.9 g/dL (6.4-8.9); eGFR For African Americans > 60 (> 60); eGFR For Non-African Americans > 60 (> 60)
[2018-12-29 00:10] LABS: Bilirubin,Urine Negative (Negative); Blood,Urine Small (Negative); Clarity,Urine Cloudy (Clear); Color,Urine Dark Yellow (Yellow); Glucose,Urine (UA) Normal (Normal); Ketones,Urine Trace mg/dL (Negative); Leukocyte Esterase,Urine Small (Negative); Nitrite,Urine Positive (Negative); Protein,Urine Negative (Neg-Trace); Specific Gravity,Urine 1.022 (1.010-1.025); Urobilinogen,Urine Normal (Normal)
[2018-12-29 00:12] LABS: Bacteria,Urine Many per hpf (None-Few); Squamous Epithelial Cell,Urine Few per lpf (None-Few); WBC,Urine 50-100 per hpf (0-3)
[2018-12-29 00:36] LABS: Valproate < 4 mcg/mL (50-100)
[2018-12-29 00:40] LABS: Amphetamine Screen,Urine Negative ng/mL (Cutoff=1000); Barbiturate Screen,Urine Negative ng/mL (Cutoff=200); Benzodiazepines Screen,Urine Positive ng/mL (Cutoff=200); Cannabinoid Screen,Urine Negative ng/mL (Cutoff = 50); Cocaine Screen,Urine Negative ng/mL (Cutoff= 300); Opiate Screen,Urine Negative ng/mL (Cutoff=300); Phencyclidine Screen,Urine Negative ng/mL (Cutoff=25)
[2018-12-29] MEDS ORDERED: cefTRIAXone 1,000 MG in Water for inj. (sterile) 10 ML IVP ONE (01:13)
[2018-12-29] MEDS ORDERED: Ziprasidone 10 MG in Water for inj. (sterile) 0.5 ML IM ONE (02:37)
[2018-12-29] MEDS ORDERED: Naloxone 0.4 MG/ML INJ IVP PRN (06:40)
[2018-12-29 08:36] LABS: BUN/Creatinine Ratio 22 (6-26); Blood Urea Nitrogen 12 mg/dL (8-23); Calcium 9.4 mg/dL (8.6-10.3); Carbon Dioxide 23 mEq/L (23-29); Chloride 105 mEq/L (98-107); Glucose 94 mg/dL (70-105); Osmolality,Calculated 294 (280-300); Potassium 3.4 mEq/L (3.5-5.1); Sodium 142 mEq/L (136-145); eGFR For African Americans > 60 (> 60); eGFR For Non-African Americans > 60 (> 60)
[2018-12-29] MEDS: cefTRIAXone 1,000 MG in Water for inj. (sterile) 10 ML IVP SCH (08:58)
[2018-12-29 09:43] LABS: Hematocrit 38.2 % (35.3-44.9); Hemoglobin 13.1 g/dL (11.5-15.4); Mean Corpuscular HGB Conc 34.3 g/dL (31.6-35.5); Mean Corpuscular Hemoglobin 29.8 pg (28.0-33.3); Mean Corpuscular Volume 86.8 fL (83.0-100.0); Mean Platelet Volume 9.7 fL (9.4-12.4); Platelet Count 200 K/mcL (140-400); Red Cell Distribution Width 13.7 % (11.5-14.5); White Blood Count 6.6 K/mcL (4.3-11.1)
[2018-12-29] MEDS: clonazePAM 1 MG TABLET PO SCH ×2 (11:20→21:08)
[2018-12-29] MEDS: 0.9 % Sodium Chloride 1,000 ML IVC SCH (15:17)
[2018-12-30] MEDS: 0.9 % Sodium Chloride 1,000 ML IVC SCH ×2 (00:59→13:52)
[2018-12-30] MEDS ORDERED: Divalproex (24 HR) 500 MG TABLET PO SCH (09:00)
[2018-12-30] MEDS: cefTRIAXone 1,000 MG in Water for inj. (sterile) 10 ML IVP SCH (10:40)
[2018-12-30] MEDS: clonazePAM 1 MG TABLET PO SCH ×2 (10:40→20:25)
[2018-12-30] MEDS: Aspirin 81 MG TAB.CHEW PO SCH (10:41)
[2018-12-30] MEDS: Metoprolol XL (24 HR) Succ 50 MG TAB.ER.24H PO SCH (10:41)
[2018-12-31 05:20] LABS: Hematocrit 37.3 % (35.3-44.9); Hemoglobin 12.4 g/dL (11.5-15.4); Mean Corpuscular HGB Conc 33.2 g/dL (31.6-35.5); Mean Corpuscular Hemoglobin 29.3 pg (28.0-33.3); Mean Corpuscular Volume 88.2 fL (83.0-100.0); Mean Platelet Volume 9.7 fL (9.4-12.4); Platelet Count 200 K/mcL (140-400); Red Blood Count 4.23 M/mcL (3.82-4.97); Red Cell Distribution Width 13.8 % (11.5-14.5); White Blood Count 7.8 K/mcL (4.3-11.1)
[2018-12-31 05:37] LABS: BUN/Creatinine Ratio 6 (6-26); Blood Urea Nitrogen 3 mg/dL (8-23); Calcium 9.1 mg/dL (8.6-10.3); Carbon Dioxide 24 mEq/L (23-29); Chloride 108 mEq/L (98-107); Glucose 112 mg/dL (70-105); Osmolality,Calculated 291 (280-300); Potassium 3.2 mEq/L (3.5-5.1); Sodium 142 mEq/L (136-145); eGFR For African Americans > 60 (> 60); eGFR For Non-African Americans > 60 (> 60)
[2018-12-31] MEDS: 0.9 % Sodium Chloride 1,000 ML IVC SCH (07:32)
[2018-12-31] MEDS: clonazePAM 1 MG TABLET PO SCH ×2 (07:41→21:05)
[2018-12-31] MEDS: Aspirin 81 MG TAB.CHEW PO SCH (07:42)
[2018-12-31] MEDS: Metoprolol XL (24 HR) Succ 50 MG TAB.ER.24H PO SCH (07:42)
[2018-12-31] MEDS: cefTRIAXone 1,000 MG in Water for inj. (sterile) 10 ML IVP SCH (07:42)
[2018-12-31] MEDS ORDERED: Haloperidol Lactate 5 MG/ML VIAL IVP ONE (09:30)
[2018-12-31] MEDS: Valproic Acid Oral Soln 250 MG/5 ML UDC PO SCH ×2 (09:49→21:05)
[2018-12-31] MEDS ORDERED: Potassium Chloride Elixir 20 MEQ/15 ML UDC PO ONE (11:30)
[2019-01-01] MEDS ORDERED: Haloperidol Lactate 5 MG/ML VIAL IVP ONE ×2 (00:12→21:50)
[2019-01-01] MEDS: clonazePAM 1 MG TABLET PO SCH (08:09)
[2019-01-01] MEDS: Valproic Acid Oral Soln 250 MG/5 ML UDC PO SCH ×2 (08:09→20:16)
[2019-01-01] MEDS: Aspirin 81 MG TAB.CHEW PO SCH (08:09)
[2019-01-01] MEDS: Metoprolol XL (24 HR) Succ 50 MG TAB.ER.24H PO SCH (08:09)
[2019-01-01] MEDS: Sulfamethoxazole/Trimeth DS 1 EACH TABLET PO SCH ×2 (08:09→20:16)
[2019-01-01 08:27] LABS: BUN/Creatinine Ratio 10 (6-26); Blood Urea Nitrogen 6 mg/dL (8-23); Calcium 9.2 mg/dL (8.6-10.3); Carbon Dioxide 24 mEq/L (23-29); Chloride 108 mEq/L (98-107); Glucose 114 mg/dL (70-105); Osmolality,Calculated 294 (280-300); Potassium 3.3 mEq/L (3.5-5.1); Sodium 143 mEq/L (136-145); eGFR For African Americans > 60 (> 60); eGFR For Non-African Americans > 60 (> 60)
[2019-01-01] MEDS ORDERED: Potassium Chloride Elixir 20 MEQ/15 ML UDC PO ONE (08:51)
[2019-01-01] MEDS: clonazePAM 0.5 MG TABLET PO SCH (20:17)
[2019-01-01] MEDS ORDERED: Melatonin 3 MG TABLET PO SCH (21:00)
[2019-01-01] MEDS ORDERED: *HR* Promethazine 25 MG/ML VIAL IVP ONE (21:49)
[2019-01-02] MEDS ORDERED: *HR* Enoxaparin 40 MG/0.4 ML SYRINGE SQ SCH (06:00)
[2019-01-02 07:23] VITALS: BP 166/79
[2019-01-02] MEDS: Metoprolol XL (24 HR) Succ 50 MG TAB.ER.24H PO SCH (08:13)
[2019-01-02] MEDS: Aspirin 81 MG TAB.CHEW PO SCH (08:13)
[2019-01-02] MEDS: clonazePAM 0.5 MG TABLET PO SCH (08:13)
[2019-01-02] MEDS: Sulfamethoxazole/Trimeth DS 1 EACH TABLET PO SCH (08:14)
[2019-01-02] MEDS: Valproic Acid Oral Soln 250 MG/5 ML UDC PO SCH (08:14)
== END 2019-01-02 15:13 | disposition home health service (06) | DRG 689 ==
LOC: EMEROOARM 22:17 → 3ANU 22:17 → SUATTDRO 12-29 05:18 → 3ANU 12-29 06:03
PROVIDERS: ADMIT Family Medicine; ATTEND Internal Medicine

== ENCOUNTER 2019-06-16 04:21 | Observation (INO) ==
[2019-06-16 05:27] LABS: Bilirubin,Urine Small (Negative); Blood,Urine Negative (Negative); Clarity,Urine Cloudy (Clear); Color,Urine Dark Yellow (Yellow); Glucose,Urine (UA) Normal (Normal); Ketones,Urine Trace mg/dL (Negative); Leukocyte Esterase,Urine Trace (Negative); Nitrite,Urine Negative (Negative); PH,Urine 5.5 pH Units (5.0-8.0); Protein,Urine Trace mg/dL (Neg-Trace); Specific Gravity,Urine 1.024 (1.010-1.025); Urobilinogen,Urine Normal (Normal)
[2019-06-16 05:29] LABS: Bacteria,Urine None Seen per hpf (None-Few); Hyaline Casts,Urine Few per lpf (None-Few); Squamous Epithelial Cell,Urine Many per lpf (None-Few)
[2019-06-16 05:48] LABS: Basophils % 0.3 %; Eosinophils # 0.1 K/mcL (0.0-0.6); Eosinophils % 0.6 %; Hematocrit 46.2 % (35.3-44.9); Hemoglobin 15.3 g/dL (11.5-15.4); Immature Granulocytes % 0.5 % (0-4); Lymphocytes # 0.9 K/mcL (0.6-4.6); Lymphocytes % 10.1 %; Mean Corpuscular HGB Conc 33.1 g/dL (31.6-35.5); Mean Corpuscular Hemoglobin 29.1 pg (28.0-33.3); Monocytes # 0.7 K/mcL (0.0-1.3); Monocytes % 7.5 %; Platelet Count 319 K/mcL (140-400); Red Blood Count 5.25 M/mcL (3.82-4.97); Red Cell Distribution Width 13.5 % (11.5-14.5)
[2019-06-16 05:49] LABS: Neutrophils # 7.1 K/mcL (1.6-8.9); White Blood Count 8.8 K/mcL (4.3-11.1)
[2019-06-16] MEDS ORDERED: 0.9 % Sodium Chloride 500 ML IVC ONE (06:13)
[2019-06-16 06:14] LABS: Alanine Aminotransferase 7 Units/L (7-52); Albumin/Globulin Ratio 1.2 (1.1-2.2); Alkaline Phosphatase 131 Units/L (34-104); Aspartate Amino Transferase 10 Units/L (13-39); BUN/Creatinine Ratio 14 (6-26); Bilirubin,Direct 0.1 mg/dL (0.0-0.2); Bilirubin,Indirect 0.4 mg/dL (0.0-1.0); Bilirubin,Total 0.5 mg/dL (0.3-1.0); Blood Urea Nitrogen 10 mg/dL (8-23); Calcium 10.2 mg/dL (8.6-10.3); Carbon Dioxide 29 mEq/L (23-29); Chloride 97 mEq/L (98-107); Globulin 3.4 g/dL (2.4-3.5); Glucose 211 mg/dL (70-105); Magnesium 1.7 mg/dL (1.6-2.6); Osmolality,Calculated 293 (280-300); Potassium 3.2 mEq/L (3.5-5.1); Sodium 139 mEq/L (136-145); Total Protein 7.4 g/dL (6.4-8.9); Troponin I < 0.03 ng/mL (< 0.04); eGFR For African Americans > 60 (> 60); eGFR For Non-African Americans > 60 (> 60)
[2019-06-16 06:32] LABS: Valproate 65 mcg/mL (50-100)
[2019-06-16] MEDS ORDERED: Naloxone 0.4 MG/ML INJ IVP PRN (07:18)
[2019-06-16] MEDS ORDERED: *HR* Promethazine 25 MG/ML VIAL IVP PRN (07:18)
[2019-06-16] MEDS ORDERED: Acetaminophen 325 MG TABLET PO PRN (07:18)
[2019-06-16] MEDS ORDERED: 0.9 % Sodium Chloride 1,000 ML IVC SCH (07:30)
[2019-06-16] MEDS ORDERED: Dextrose Gel 15 GM/37.5 ML TUBE PO PRN ×2 (08:17)
[2019-06-16] MEDS ORDERED: *HR* Dextrose 50 % in Water (Syg) 50 ML SYRINGE IVP PRN (08:17)
[2019-06-16] MEDS ORDERED: D5% in Water 1,000 ML IVC PRN (08:17)
[2019-06-16] MEDS ORDERED: Haloperidol Lactate 5 MG/ML VIAL IVP PRN (08:31)
[2019-06-16] MEDS: QUEtiapine Fumarate 25 MG TABLET PO SCH ×2 (08:42→21:41)
[2019-06-16] MEDS: Metoprolol XL (24 HR) Succ 50 MG TAB.ER.24H PO SCH (08:42)
[2019-06-16] MEDS: Divalproex (12 HR) 250 MG TABLET PO SCH ×2 (08:42→21:40)
[2019-06-16] MEDS: Aspirin 81 MG TAB.CHEW PO SCH (08:42)
[2019-06-16] MEDS: clonazePAM 1 MG TABLET PO SCH ×2 (08:43→21:40)
[2019-06-16] MEDS: cefTRIAXone 1,000 MG in Water for inj. (sterile) 10 ML IVP SCH (08:43)
[2019-06-16] MEDS: Insulin LISPRO 300 UNITS/3 ML VIAL SQ SCH ×2 (11:50→17:20)
[2019-06-16] MEDS: *HR* Heparin 5,000 UNIT/ML VIAL SQ SCH ×2 (14:57→21:41)
[2019-06-17 03:00] LABS: Basophils % 0.5 %; Eosinophils # 0.2 K/mcL (0.0-0.6); Hematocrit 38.7 % (35.3-44.9); Immature Granulocytes % 0.5 % (0-4); Lymphocytes # 2.2 K/mcL (0.6-4.6); Lymphocytes % 38.9 %; Mean Corpuscular HGB Conc 32.6 g/dL (31.6-35.5); Mean Corpuscular Hemoglobin 29.3 pg (28.0-33.3); Mean Platelet Volume 9.9 fL (9.4-12.4); Monocytes # 0.5 K/mcL (0.0-1.3); Neutrophils # 2.7 K/mcL (1.6-8.9); Platelet Count 261 K/mcL (140-400); Red Cell Distribution Width 13.8 % (11.5-14.5); Segmented Neutrophils % 48.1 %; White Blood Count 5.7 K/mcL (4.3-11.1)
[2019-06-17 03:01] LABS: Hemoglobin 12.6 g/dL (11.5-15.4)
[2019-06-17 03:03] LABS: Prothrombin Time 11.4 Seconds (9.4-12.1)
[2019-06-17 03:06] LABS: Activated Partial Thrombo Time 34.1 Seconds (26.0-36.0)
[2019-06-17 03:20] LABS: BUN/Creatinine Ratio 8 (6-26); Blood Urea Nitrogen 4 mg/dL (8-23); Calcium 9.3 mg/dL (8.6-10.3); Carbon Dioxide 26 mEq/L (23-29); Chloride 106 mEq/L (98-107); Glucose 108 mg/dL (70-105); Magnesium 1.7 mg/dL (1.6-2.6); Osmolality,Calculated 289 (280-300); Phosphorous 3.4 mg/dL (2.7-4.5); Potassium 3.5 mEq/L (3.5-5.1); Sodium 141 mEq/L (136-145); eGFR For African Americans > 60 (> 60); eGFR For Non-African Americans > 60 (> 60)
[2019-06-17] MEDS: *HR* Heparin 5,000 UNIT/ML VIAL SQ SCH ×3 (05:57→22:41)
[2019-06-17] MEDS: Insulin LISPRO 300 UNITS/3 ML VIAL SQ SCH ×3 (08:08→17:10)
[2019-06-17] MEDS: cefTRIAXone 1,000 MG in Water for inj. (sterile) 10 ML IVP SCH (08:16)
[2019-06-17] MEDS: QUEtiapine Fumarate 25 MG TABLET PO SCH ×2 (08:23→20:52)
[2019-06-17] MEDS: Metoprolol XL (24 HR) Succ 50 MG TAB.ER.24H PO SCH (08:24)
[2019-06-17] MEDS: clonazePAM 1 MG TABLET PO SCH ×2 (08:24→20:50)
[2019-06-17] MEDS: Aspirin 81 MG TAB.CHEW PO SCH (08:24)
[2019-06-17] MEDS: Divalproex (12 HR) 250 MG TABLET PO SCH ×2 (08:24→20:50)
[2019-06-17] MEDS ORDERED: 0.9 % Sodium Chloride 1,000 ML IVC SCH (12:00)
[2019-06-17] MEDS: *HR* LORazepam 2 MG/ML VIAL IVP PRN (20:05)
[2019-06-18] MEDS: *HR* Heparin 5,000 UNIT/ML VIAL SQ SCH ×3 (05:04→20:47)
[2019-06-18] MEDS: *HR* LORazepam 2 MG/ML VIAL IVP PRN (05:49)
[2019-06-18 06:07] LABS: Hematocrit 38.2 % (35.3-44.9); Hemoglobin 12.6 g/dL (11.5-15.4); Mean Corpuscular Hemoglobin 29.8 pg (28.0-33.3); Mean Corpuscular Volume 90.3 fL (83.0-100.0); Mean Platelet Volume 10.1 fL (9.4-12.4); Platelet Count 241 K/mcL (140-400); Red Blood Count 4.23 M/mcL (3.82-4.97); Red Cell Distribution Width 13.8 % (11.5-14.5); White Blood Count 4.5 K/mcL (4.3-11.1)
[2019-06-18 06:34] LABS: BUN/Creatinine Ratio 10 (6-26); Blood Urea Nitrogen 4 mg/dL (8-23); Calcium 8.8 mg/dL (8.6-10.3); Carbon Dioxide 26 mEq/L (23-29); Chloride 111 mEq/L (98-107); Glucose 94 mg/dL (70-105); Osmolality,Calculated 295 (280-300); Potassium 3.5 mEq/L (3.5-5.1); Sodium 144 mEq/L (136-145); eGFR For African Americans > 60 (> 60); eGFR For Non-African Americans > 60 (> 60)
[2019-06-18] MEDS: Insulin LISPRO 300 UNITS/3 ML VIAL SQ SCH ×3 (08:02→18:47)
[2019-06-18] MEDS: clonazePAM 1 MG TABLET PO SCH ×2 (08:06→20:47)
[2019-06-18] MEDS: Divalproex (12 HR) 250 MG TABLET PO SCH ×2 (08:06→20:47)
[2019-06-18] MEDS: Metoprolol XL (24 HR) Succ 50 MG TAB.ER.24H PO SCH (08:06)
[2019-06-18] MEDS: QUEtiapine Fumarate 25 MG TABLET PO SCH ×2 (08:06→20:47)
[2019-06-18] MEDS: Aspirin 81 MG TAB.CHEW PO SCH (08:07)
[2019-06-18] MEDS ORDERED: Permethrin Cream Rinse 60 ML LIQUID TP ONE (14:45)
[2019-06-19 02:48] LABS: Hematocrit 39.4 % (35.3-44.9); Hemoglobin 12.9 g/dL (11.5-15.4); Mean Corpuscular HGB Conc 32.7 g/dL (31.6-35.5); Mean Corpuscular Hemoglobin 29.5 pg (28.0-33.3); Mean Corpuscular Volume 90.2 fL (83.0-100.0); Platelet Count 251 K/mcL (140-400); Red Blood Count 4.37 M/mcL (3.82-4.97); Red Cell Distribution Width 13.8 % (11.5-14.5); White Blood Count 5.8 K/mcL (4.3-11.1)
[2019-06-19] MEDS: *HR* LORazepam 2 MG/ML VIAL IVP PRN ×2 (02:49→10:27)
[2019-06-19] MEDS: *HR* Heparin 5,000 UNIT/ML VIAL SQ SCH ×2 (05:07→15:51)
[2019-06-19] MEDS: Insulin LISPRO 300 UNITS/3 ML VIAL SQ SCH (08:24)
[2019-06-19] MEDS: Divalproex (12 HR) 250 MG TABLET PO SCH (08:30)
[2019-06-19] MEDS: clonazePAM 1 MG TABLET PO SCH (08:30)
[2019-06-19] MEDS: Metoprolol XL (24 HR) Succ 50 MG TAB.ER.24H PO SCH (08:30)
[2019-06-19] MEDS: QUEtiapine Fumarate 25 MG TABLET PO SCH (08:30)
[2019-06-19] MEDS: Aspirin 81 MG TAB.CHEW PO SCH (08:30)
[2019-06-19 08:51] LABS: Estimated Average Glucose 108 mg/dl
[2019-06-19 15:04] VITALS: BP 158/74
== END 2019-06-19 17:09 | disposition other institution (70) ==
LOC: EMEROOARM 04:21 → 3BNU 04:21
PROVIDERS: ADMIT Internal Medicine; ATTEND Internal Medicine

== ENCOUNTER 2019-07-02 15:49 | Observation (INO) ==
[2019-07-02] MEDS ORDERED: Tetracaine 0.5% OPTH 80 DROP/4 ML BOTTLE LEFT EYE ONE (16:02)
[2019-07-02 16:54] LABS: Basophils % 0.4 %; Eosinophils # 0.2 K/mcL (0.0-0.6); Eosinophils % 1.8 %; Hematocrit 44.9 % (35.3-44.9); Hemoglobin 14.6 g/dL (11.5-15.4); Immature Granulocytes % 0.7 % (0-4); Lymphocytes # 1.5 K/mcL (0.6-4.6); Lymphocytes % 18.4 %; Mean Corpuscular HGB Conc 32.5 g/dL (31.6-35.5); Mean Corpuscular Hemoglobin 29.9 pg (28.0-33.3); Mean Corpuscular Volume 91.8 fL (83.0-100.0); Mean Platelet Volume 10.6 fL (9.4-12.4); Monocytes # 0.6 K/mcL (0.0-1.3); Monocytes % 7.5 %; Neutrophils # 5.9 K/mcL (1.6-8.9); Platelet Count 234 K/mcL (140-400); Red Blood Count 4.89 M/mcL (3.82-4.97); Red Cell Distribution Width 13.8 % (11.5-14.5); Segmented Neutrophils % 71.2 %; White Blood Count 8.3 K/mcL (4.3-11.1)
[2019-07-02 16:55] LABS: Prothrombin Time 10.8 Seconds (9.4-12.1)
[2019-07-02 16:57] LABS: Activated Partial Thrombo Time 32.5 Seconds (26.0-36.0)
[2019-07-02 17:13] LABS: Alanine Aminotransferase 6 Units/L (7-52); Albumin 3.8 g/dL (3.5-5.7); Albumin/Globulin Ratio 1.4 (1.1-2.2); Alkaline Phosphatase 114 Units/L (34-104); Aspartate Amino Transferase 11 Units/L (13-39); BUN/Creatinine Ratio 25 (6-26); Bilirubin,Indirect 0.3 mg/dL (0.0-1.0); Bilirubin,Total 0.3 mg/dL (0.3-1.0); Blood Urea Nitrogen 14 mg/dL (8-23); Calcium 9.2 mg/dL (8.6-10.3); Carbon Dioxide 26 mEq/L (23-29); Chloride 106 mEq/L (98-107); Ethanol < 10 mg/dL (Less than 10); Globulin 2.8 g/dL (2.4-3.5); Glucose 142 mg/dL (70-105); Osmolality,Calculated 287 (280-300); Potassium 3.7 mEq/L (3.5-5.1); Sodium 137 mEq/L (136-145); Total Protein 6.6 g/dL (6.4-8.9); Troponin I < 0.03 ng/mL (< 0.04); eGFR For African Americans > 60 (> 60); eGFR For Non-African Americans > 60 (> 60)
[2019-07-02] MEDS ORDERED: WATER FOR INJ IM ONE (18:30)
[2019-07-02] MEDS ORDERED: ZIPRASIDONE IM ONE (18:30)
[2019-07-02 20:34] LABS: Bilirubin,Urine Negative (Negative); Blood,Urine Small (Negative); Clarity,Urine Cloudy (Clear); Color,Urine Yellow (Yellow); Glucose,Urine (UA) Normal (Normal); Ketones,Urine Negative (Negative); Leukocyte Esterase,Urine Large (Negative); Nitrite,Urine Negative (Negative); Protein,Urine 30 mg/dL (Neg-Trace); Specific Gravity,Urine 1.022 (1.010-1.025); Urobilinogen,Urine Normal (Normal)
[2019-07-02] MEDS ORDERED: Ondansetron ODT 4 MG TAB.RAPDIS SL PRN (20:35)
[2019-07-02] MEDS ORDERED: Naloxone 0.4 MG/ML INJ IVP PRN (20:35)
[2019-07-02 20:36] LABS: Bacteria,Urine Few per hpf (None-Few); Hyaline Casts,Urine None Seen per lpf (None-Few); Squamous Epithelial Cell,Urine Many per lpf (None-Few); WBC,Urine TNTC per hpf (0-3)
[2019-07-02 20:38] LABS: RBC,Urine 0-3 per hpf (0-3)
[2019-07-02 20:39] LABS: Yeast,Urine Few per hpf (None Seen)
[2019-07-02 20:53] LABS: Amphetamine Screen,Urine Negative ng/mL (Cutoff=1000); Barbiturate Screen,Urine Negative ng/mL (Cutoff=200); Benzodiazepines Screen,Urine Negative ng/mL (Cutoff=200); Cannabinoid Screen,Urine Negative ng/mL (Cutoff = 50); Cocaine Screen,Urine Negative ng/mL (Cutoff= 300); Opiate Screen,Urine Positive ng/mL (Cutoff=300); Phencyclidine Screen,Urine Negative ng/mL (Cutoff=25)
[2019-07-02] MEDS: QUEtiapine Fumarate 25 MG TABLET PO SCH (22:01)
[2019-07-02] MEDS: clonazePAM 1 MG TABLET PO SCH (22:01)
[2019-07-03 04:16] LABS: Basophils % 0.6 %; Eosinophils # 0.2 K/mcL (0.0-0.6); Eosinophils % 2.7 %; Hematocrit 37.5 % (35.3-44.9); Hemoglobin 12.1 g/dL (11.5-15.4); Immature Granulocytes % 0.4 % (0-4); Lymphocytes # 2.2 K/mcL (0.6-4.6); Mean Corpuscular HGB Conc 32.3 g/dL (31.6-35.5); Mean Corpuscular Hemoglobin 29.4 pg (28.0-33.3); Mean Platelet Volume 11.1 fL (9.4-12.4); Monocytes # 0.7 K/mcL (0.0-1.3); Monocytes % 9.8 %; Platelet Count 196 K/mcL (140-400); Red Blood Count 4.12 M/mcL (3.82-4.97); Red Cell Distribution Width 13.9 % (11.5-14.5); Segmented Neutrophils % 55.5 %; White Blood Count 7.2 K/mcL (4.3-11.1)
[2019-07-03 04:21] LABS: BUN/Creatinine Ratio 23 (6-26); Blood Urea Nitrogen 10 mg/dL (8-23); Calcium 8.7 mg/dL (8.6-10.3); Carbon Dioxide 27 mEq/L (23-29); Chloride 106 mEq/L (98-107); Glucose 93 mg/dL (70-105); Osmolality,Calculated 289 (280-300); Potassium 3.8 mEq/L (3.5-5.1); Sodium 140 mEq/L (136-145); eGFR For African Americans > 60 (> 60); eGFR For Non-African Americans > 60 (> 60)
[2019-07-03 04:47] LABS: Folate 8.6 ng/mL (3.0-16.0)
[2019-07-03] MEDS: *HR* Heparin 5,000 UNIT/ML VIAL SQ SCH ×2 (05:12→16:47)
[2019-07-03] MEDS: Divalproex (12 HR) 250 MG TABLET PO SCH ×2 (08:47→20:19)
[2019-07-03] MEDS: Aspirin 81 MG TAB.CHEW PO SCH (08:47)
[2019-07-03] MEDS: Metoprolol XL (24 HR) Succ 50 MG TAB.ER.24H PO SCH (08:47)
[2019-07-03] MEDS: clonazePAM 1 MG TABLET PO SCH ×2 (08:47→20:19)
[2019-07-03] MEDS: QUEtiapine Fumarate 25 MG TABLET PO SCH ×2 (08:48→20:19)
[2019-07-03] MEDS: cefTRIAXone 1,000 MG in Water for inj. (sterile) 10 ML IVP SCH (08:48)
[2019-07-03] MEDS: amLODIPine 5 MG TABLET PO SCH (08:48)
[2019-07-04] MEDS: *HR* Heparin 5,000 UNIT/ML VIAL SQ SCH ×2 (06:21→18:28)
[2019-07-04 06:36] LABS: Hematocrit 39.5 % (35.3-44.9); Hemoglobin 12.6 g/dL (11.5-15.4); Mean Corpuscular HGB Conc 31.9 g/dL (31.6-35.5); Mean Platelet Volume 11.1 fL (9.4-12.4); Platelet Count 180 K/mcL (140-400); Red Blood Count 4.34 M/mcL (3.82-4.97); Red Cell Distribution Width 13.9 % (11.5-14.5); White Blood Count 6.9 K/mcL (4.3-11.1)
[2019-07-04] MEDS: QUEtiapine Fumarate 25 MG TABLET PO SCH ×2 (08:06→19:48)
[2019-07-04] MEDS: Divalproex (12 HR) 250 MG TABLET PO SCH ×2 (08:06→19:48)
[2019-07-04] MEDS: cefTRIAXone 1,000 MG in Water for inj. (sterile) 10 ML IVP SCH (08:06)
[2019-07-04] MEDS: Metoprolol XL (24 HR) Succ 50 MG TAB.ER.24H PO SCH (08:06)
[2019-07-04] MEDS: Aspirin 81 MG TAB.CHEW PO SCH (08:06)
[2019-07-04] MEDS: amLODIPine 5 MG TABLET PO SCH (08:06)
[2019-07-04] MEDS: clonazePAM 1 MG TABLET PO SCH ×2 (08:06→19:48)
[2019-07-05] MEDS: *HR* Heparin 5,000 UNIT/ML VIAL SQ SCH ×2 (05:31→17:02)
[2019-07-05] MEDS: Divalproex (12 HR) 250 MG TABLET PO SCH ×2 (07:37→20:25)
[2019-07-05] MEDS: cefTRIAXone 1,000 MG in Water for inj. (sterile) 10 ML IVP SCH (07:37)
[2019-07-05] MEDS: clonazePAM 1 MG TABLET PO SCH ×2 (07:37→20:25)
[2019-07-05] MEDS: amLODIPine 5 MG TABLET PO SCH (07:38)
[2019-07-05] MEDS: Aspirin 81 MG TAB.CHEW PO SCH (07:38)
[2019-07-05] MEDS: QUEtiapine Fumarate 25 MG TABLET PO SCH ×2 (07:38→20:25)
[2019-07-05] MEDS: Metoprolol XL (24 HR) Succ 50 MG TAB.ER.24H PO SCH (07:38)
[2019-07-05 07:58] LABS: Hematocrit 41.8 % (35.3-44.9); Hemoglobin 13.5 g/dL (11.5-15.4); Mean Corpuscular HGB Conc 32.3 g/dL (31.6-35.5); Mean Corpuscular Hemoglobin 29.3 pg (28.0-33.3); Mean Corpuscular Volume 90.7 fL (83.0-100.0); Mean Platelet Volume 10.8 fL (9.4-12.4); Platelet Count 219 K/mcL (140-400); Red Blood Count 4.61 M/mcL (3.82-4.97); Red Cell Distribution Width 13.9 % (11.5-14.5); White Blood Count 6.7 K/mcL (4.3-11.1)
[2019-07-05 23:15] LABS: Amphetamines NEGATIVE ng/mL (Cutoff 30); Barbiturates NEGATIVE ng/mL (Cutoff 75); Benzodiazepines NEGATIVE ng/mL (Cutoff 75); Buprenorphine NEGATIVE ng/mL (Cutoff 1); Cocaine NEGATIVE ng/mL (Cutoff 30); Methadone NEGATIVE ng/mL (Cutoff 40); Methamphetamines NEGATIVE ng/mL (Cutoff 30); Phencyclidine NEGATIVE ng/mL (Cutoff 15)
[2019-07-06] MEDS: *HR* Heparin 5,000 UNIT/ML VIAL SQ SCH ×2 (07:41→17:04)
[2019-07-06] MEDS: QUEtiapine Fumarate 25 MG TABLET PO SCH ×2 (07:42→21:41)
[2019-07-06] MEDS: Divalproex (12 HR) 250 MG TABLET PO SCH ×2 (07:43→21:41)
[2019-07-06] MEDS: Metoprolol XL (24 HR) Succ 50 MG TAB.ER.24H PO SCH (07:43)
[2019-07-06] MEDS: clonazePAM 1 MG TABLET PO SCH ×2 (07:43→21:41)
[2019-07-06] MEDS: cefTRIAXone 1,000 MG in Water for inj. (sterile) 10 ML IVP SCH (07:43)
[2019-07-06] MEDS: Aspirin 81 MG TAB.CHEW PO SCH (07:43)
[2019-07-06] MEDS: amLODIPine 5 MG TABLET PO SCH (07:43)
[2019-07-06 15:47] LABS: Opiates POSITIVE ng/mL (Cutoff 30)
[2019-07-07] MEDS: *HR* Heparin 5,000 UNIT/ML VIAL SQ SCH (05:58)
[2019-07-07 06:30] LABS: Hematocrit 39.1 % (35.3-44.9); Hemoglobin 12.6 g/dL (11.5-15.4); Mean Corpuscular HGB Conc 32.2 g/dL (31.6-35.5); Mean Corpuscular Hemoglobin 29.6 pg (28.0-33.3); Mean Corpuscular Volume 91.8 fL (83.0-100.0); Mean Platelet Volume 11.1 fL (9.4-12.4); Platelet Count 214 K/mcL (140-400); Red Blood Count 4.26 M/mcL (3.82-4.97); Red Cell Distribution Width 14.1 % (11.5-14.5); White Blood Count 5.7 K/mcL (4.3-11.1)
[2019-07-07 07:36] VITALS: BP 136/75
[2019-07-07] MEDS: amLODIPine 5 MG TABLET PO SCH (09:43)
[2019-07-07] MEDS: clonazePAM 1 MG TABLET PO SCH (09:43)
[2019-07-07] MEDS: Aspirin 81 MG TAB.CHEW PO SCH (09:44)
[2019-07-07] MEDS: QUEtiapine Fumarate 25 MG TABLET PO SCH (09:44)
[2019-07-07] MEDS: Divalproex (12 HR) 250 MG TABLET PO SCH (09:44)
[2019-07-07] MEDS: Metoprolol XL (24 HR) Succ 50 MG TAB.ER.24H PO SCH (09:44)
[2019-07-07] MEDS: cefTRIAXone 1,000 MG in Water for inj. (sterile) 10 ML IVP SCH (10:07)
[2019-07-08 01:11] LABS: Hydrocodone Confirmation <2 ng/mL
[2019-07-08 07:20] LABS: 6_Acetylmorphine Confirmation <2 ng/mL; Oxymorphone Confirmation <2 ng/mL
== END 2019-07-07 12:16 | disposition home health service (06) ==
LOC: EMEROOARM 15:49 → 3BNU 15:49
PROVIDERS: ADMIT Student in an Organized Health Care Education/Training Program; ATTEND Student in an Organized Health Care Education/Training Program

== ENCOUNTER 2019-07-23 13:39 | Inpatient (IN) ==
[2019-07-23] MEDS ORDERED: 0.9 % Sodium Chloride 1,000 ML IVC ONE (13:56)
[2019-07-23] MEDS ORDERED: *HR* LORazepam 2 MG/ML VIAL IVP ONE ×2 (14:04→17:02)
[2019-07-23] MEDS ORDERED: *HR* LORazepam 2 MG/ML VIAL ONE (14:06)
[2019-07-23 14:21] LABS: Bilirubin,Urine Small (Negative); Blood,Urine Large (Negative); Clarity,Urine Clear (Clear); Color,Urine Dark Yellow (Yellow); Glucose,Urine (UA) Normal (Normal); Ketones,Urine Trace mg/dL (Negative); Leukocyte Esterase,Urine Negative (Negative); Nitrite,Urine Negative (Negative); PH,Urine 6.5 pH Units (5.0-8.0); Protein,Urine Trace mg/dL (Neg-Trace); Specific Gravity,Urine 1.022 (1.010-1.025); Urobilinogen,Urine Normal (Normal)
[2019-07-23 14:23] LABS: Bacteria,Urine None Seen per hpf (None-Few); Hyaline Casts,Urine None Seen per lpf (None-Few); RBC,Urine TNTC per hpf (0-3); Squamous Epithelial Cell,Urine Many per lpf (None-Few); WBC,Urine 0-3 per hpf (0-3)
[2019-07-23 14:55] LABS: Basophils % 0.3 %; Eosinophils % 0.3 %; Hematocrit 37.9 % (35.3-44.9); Hemoglobin 12.2 g/dL (11.5-15.4); Immature Granulocytes % 0.5 % (0-4); Lymphocytes # 0.8 K/mcL (0.6-4.6); Lymphocytes % 13.8 %; Mean Corpuscular HGB Conc 32.2 g/dL (31.6-35.5); Mean Corpuscular Volume 90.2 fL (83.0-100.0); Mean Platelet Volume 10.8 fL (9.4-12.4); Monocytes # 0.6 K/mcL (0.0-1.3); Monocytes % 10.4 %; Neutrophils # 4.4 K/mcL (1.6-8.9); Platelet Count 222 K/mcL (140-400); Red Cell Distribution Width 13.5 % (11.5-14.5); Segmented Neutrophils % 74.7 %; White Blood Count 5.9 K/mcL (4.3-11.1)
[2019-07-23] MEDS ORDERED: Acetaminophen 650 MG RECTAL SUPP RC ONE (14:55)
[2019-07-23 14:59] LABS: Prothrombin Time 11.4 Seconds (9.4-12.1)
[2019-07-23 15:02] LABS: Activated Partial Thrombo Time 28.3 Seconds (26.0-36.0)
[2019-07-23 15:17] LABS: Alanine Aminotransferase 7 Units/L (7-52); Albumin 3.9 g/dL (3.5-5.7); Albumin/Globulin Ratio 1.3 (1.1-2.2); Alkaline Phosphatase 71 Units/L (34-104); Aspartate Amino Transferase 10 Units/L (13-39); BUN/Creatinine Ratio 11 (6-26); Bilirubin,Direct 0.1 mg/dL (0.0-0.2); Bilirubin,Indirect 0.5 mg/dL (0.0-1.0); Bilirubin,Total 0.6 mg/dL (0.3-1.0); Blood Urea Nitrogen 10 mg/dL (8-23); Calcium 9.6 mg/dL (8.6-10.3); Carbon Dioxide 24 mEq/L (23-29); Chloride 101 mEq/L (98-107); Ethanol < 10 mg/dL (Less than 10); Globulin 2.9 g/dL (2.4-3.5); Glucose 142 mg/dL (70-105); Osmolality,Calculated 289 (280-300); Potassium 2.9 mEq/L (3.5-5.1); Sodium 139 mEq/L (136-145); Total Protein 6.8 g/dL (6.4-8.9); Troponin I < 0.03 ng/mL (< 0.04); eGFR For African Americans > 60 (> 60); eGFR For Non-African Americans > 60 (> 60)
[2019-07-23] MEDS ORDERED: cefTRIAXone 2,000 MG in Water for inj. (sterile) 20 ML IVP ONE (16:16)
[2019-07-23] MEDS ORDERED: Acyclovir 500 MG in D5% in Water 250 ML IVPB ONE (16:16)
[2019-07-23] MEDS ORDERED: HYOSCYAMINE SULFATE 0.125 MG PO PRN (16:30)
[2019-07-23] MEDS ORDERED: Acetaminophen 650 MG RECTAL SUPP RC PRN (16:30)
[2019-07-23] MEDS ORDERED: Bisacodyl 10 MG RECTAL SUPPOSITORY RC PRN (16:30)
[2019-07-23] MEDS ORDERED: QUEtiapine Fumarate 25 MG TABLET PO PRN (16:30)
[2019-07-23] MEDS ORDERED: Ondansetron 4 MG/2 ML VIAL IVP PRN (16:35)
[2019-07-23] MEDS ORDERED: Naloxone 0.4 MG/ML INJ IVP PRN (16:35)
[2019-07-23] MEDS ORDERED: CefTRIAXone 2,000 MG VIAL ONE (16:54)
[2019-07-23] MEDS ORDERED: Vancomycin 750 MG VIAL ONE (16:54)
[2019-07-23] MEDS ORDERED: D5% in Water 0 ML ONE (16:54)
[2019-07-23] MEDS ORDERED: Water for inj. (sterile) 20 ML IV ONE (16:54)
[2019-07-23] MEDS ORDERED: 0.9 % Sodium Chloride 250 ML ONE (16:56)
[2019-07-23 17:19] LABS: Thyroid Stimulating Hormone 1.276 mcIU/mL (0.340-5.600)
[2019-07-23] MEDS ORDERED: levETIRAcetam 1,000 MG in 0.9 % Sodium Chloride 100 ML IVPB ONE (17:20)
[2019-07-23 17:40] LABS: Amphetamine Screen,Urine Negative ng/mL (Cutoff=1000); Barbiturate Screen,Urine Negative ng/mL (Cutoff=200); Benzodiazepines Screen,Urine Negative ng/mL (Cutoff=200); Cannabinoid Screen,Urine Negative ng/mL (Cutoff = 50); Cocaine Screen,Urine Negative ng/mL (Cutoff= 300); Opiate Screen,Urine Positive ng/mL (Cutoff=300); Phencyclidine Screen,Urine Negative ng/mL (Cutoff=25)
[2019-07-23] MEDS ORDERED: *HR* LORazepam 0.5 MG TABLET PO PRN (17:50)
[2019-07-23] MEDS: *HR* Heparin 5,000 UNIT/ML VIAL SQ SCH (20:40)
[2019-07-23] MEDS: Divalproex (12 HR) 250 MG TABLET PO SCH (20:42)
[2019-07-23] MEDS: Ziprasidone 20 MG CAPSULE PO SCH (20:44)
[2019-07-23] MEDS: Melatonin 3 MG TABLET PO SCH (20:45)
[2019-07-23] MEDS: Cyprohepatdine 4 MG TABLET PO SCH (20:47)
[2019-07-23] MEDS: ARIPiprazole 10 MG TABLET PO SCH (20:48)
[2019-07-23] MEDS: Ringers Solution, Lactated 1,000 ML IVC SCH (20:51)
[2019-07-23] MEDS: Haloperidol Lactate 5 MG/ML VIAL IVP PRN (21:02)
[2019-07-23] MEDS: Acyclovir 500 MG in D5% in Water 100 ML IVPB SCH (22:40)
[2019-07-24 01:02] LABS: Basophils % 0.3 %; Eosinophils # 0.2 K/mcL (0.0-0.6); Eosinophils % 2.7 %; Hematocrit 32.7 % (35.3-44.9); Hemoglobin 10.7 g/dL (11.5-15.4); Immature Granulocytes % 0.6 % (0-4); Lymphocytes # 2.4 K/mcL (0.6-4.6); Lymphocytes % 36.3 %; Mean Corpuscular HGB Conc 32.7 g/dL (31.6-35.5); Mean Corpuscular Hemoglobin 29.4 pg (28.0-33.3); Mean Corpuscular Volume 89.8 fL (83.0-100.0); Mean Platelet Volume 11.1 fL (9.4-12.4); Monocytes # 0.8 K/mcL (0.0-1.3); Neutrophils # 3.2 K/mcL (1.6-8.9); Platelet Count 165 K/mcL (140-400); Red Blood Count 3.64 M/mcL (3.82-4.97); Red Cell Distribution Width 13.4 % (11.5-14.5); Segmented Neutrophils % 48.1 %; White Blood Count 6.6 K/mcL (4.3-11.1)
[2019-07-24 01:16] LABS: BUN/Creatinine Ratio 14 (6-26); Blood Urea Nitrogen 7 mg/dL (8-23); Calcium 8.8 mg/dL (8.6-10.3); Carbon Dioxide 25 mEq/L (23-29); Chloride 108 mEq/L (98-107); Glucose 95 mg/dL (70-105); Magnesium 1.7 mg/dL (1.6-2.6); Osmolality,Calculated 290 (280-300); Phosphorous 2.3 mg/dL (2.7-4.5); Potassium 2.9 mEq/L (3.5-5.1); Sodium 141 mEq/L (136-145); eGFR For African Americans > 60 (> 60); eGFR For Non-African Americans > 60 (> 60)
[2019-07-24] MEDS: Haloperidol Lactate 5 MG/ML VIAL IVP PRN (04:25)
[2019-07-24] MEDS: *HR* Heparin 5,000 UNIT/ML VIAL SQ SCH ×2 (04:39→17:52)
[2019-07-24] MEDS: cefTRIAXone 2,000 MG in 0.9 % Sodium Chloride Mini Bag 100 ML IVPB SCH ×2 (06:09→17:51)
[2019-07-24] MEDS: Ringers Solution, Lactated 1,000 ML IVC SCH (06:12)
[2019-07-24] MEDS: Cholecalciferol (D-3) 1,000 UNIT (25MCG) TABLET PO SCH (09:32)
[2019-07-24] MEDS: amLODIPine 5 MG TABLET PO SCH (09:32)
[2019-07-24] MEDS: Ziprasidone 20 MG CAPSULE PO SCH ×2 (09:32→17:52)
[2019-07-24] MEDS: Metoprolol XL (24 HR) Succ 50 MG TAB.ER.24H PO SCH (09:32)
[2019-07-24] MEDS: Divalproex (12 HR) 250 MG TABLET PO SCH ×2 (09:32→22:10)
[2019-07-24] MEDS: Cyprohepatdine 4 MG TABLET PO SCH ×2 (09:33→22:19)
[2019-07-24] MEDS: Aspirin 81 MG TAB.CHEW PO SCH (09:33)
[2019-07-24] MEDS: Thiamine (B-1) 100 MG in 0.9 % Sodium Chloride 50 ML IVPB SCH (09:52)
[2019-07-24] MEDS: 0.9 % Sodium Chloride w KCl 40 MEQ/1,000 ML MLS IVC SCH (09:52)
[2019-07-24] MEDS: Acyclovir 500 MG in D5% in Water 100 ML IVPB SCH ×2 (09:53→17:53)
[2019-07-24] MEDS ORDERED: *HR* LORazepam 2 MG/ML VIAL IVP ONE (11:38)
[2019-07-24 16:22] LABS: Red Blood Cell,CSF < 2000 RBC/mcL
[2019-07-24 16:28] LABS: Glucose,CSF 60 mg/dL (40-70); Total Protein,CSF 30 mg/dL (15-45)
[2019-07-24 16:44] LABS: Appearance,CSF Clear (Clear)
[2019-07-24] MEDS: ARIPiprazole 10 MG TABLET PO SCH (22:12)
[2019-07-24] MEDS: Melatonin 3 MG TABLET PO SCH (22:19)
[2019-07-25] MEDS: Divalproex Sodium 125 MG CAPSULE PO SCH ×2 (00:32→08:02)
[2019-07-25] MEDS: Acyclovir 500 MG in D5% in Water 100 ML IVPB SCH ×2 (01:10→08:02)
[2019-07-25] MEDS: 0.9 % Sodium Chloride w KCl 40 MEQ/1,000 ML MLS IVC SCH ×2 (03:20→16:27)
[2019-07-25 04:37] LABS: Hemoglobin 12.2 g/dL (11.5-15.4); Immature Granulocytes % 0.8 % (0-4)
[2019-07-25 04:55] LABS: BUN/Creatinine Ratio 7 (6-26); Blood Urea Nitrogen 3 mg/dL (8-23); Carbon Dioxide 23 mEq/L (23-29); Chloride 113 mEq/L (98-107); Glucose 89 mg/dL (70-105); Osmolality,Calculated 294 (280-300); Potassium 3.4 mEq/L (3.5-5.1); Sodium 144 mEq/L (136-145); eGFR For African Americans > 60 (> 60); eGFR For Non-African Americans > 60 (> 60)
[2019-07-25 05:11] LABS: Red Cell Distribution Width 13.7 % (11.5-14.5)
[2019-07-25 05:12] LABS: Basophils % 0.7 %; Eosinophils # 0.3 K/mcL (0.0-0.6); Eosinophils % 4.3 %; Immature Platelets 5.3 % (1.1-6.1); Lymphocytes # 1.4 K/mcL (0.6-4.6); Lymphocytes % 22.3 %; Mean Corpuscular HGB Conc 32.1 g/dL (31.6-35.5); Mean Corpuscular Hemoglobin 29.5 pg (28.0-33.3); Mean Corpuscular Volume 91.8 fL (83.0-100.0); Mean Platelet Volume 11.5 fL (9.4-12.4); Monocytes # 0.7 K/mcL (0.0-1.3); Monocytes % 10.7 %; Neutrophils # 3.7 K/mcL (1.6-8.9); Nucleated Red Blood Cells 0.3 /100 WBC (0); Platelet Count 169 K/mcL (140-400); Red Blood Count 4.14 M/mcL (3.82-4.97); Segmented Neutrophils % 61.2 %; White Blood Count 6.1 K/mcL (4.3-11.1)
[2019-07-25] MEDS: *HR* Heparin 5,000 UNIT/ML VIAL SQ SCH ×2 (06:21→16:27)
[2019-07-25] MEDS: Metoprolol XL (24 HR) Succ 50 MG TAB.ER.24H PO SCH (08:01)
[2019-07-25] MEDS: Cyprohepatdine 4 MG TABLET PO SCH (08:01)
[2019-07-25] MEDS: amLODIPine 5 MG TABLET PO SCH (08:01)
[2019-07-25] MEDS: Aspirin 81 MG TAB.CHEW PO SCH (08:01)
[2019-07-25] MEDS: Cholecalciferol (D-3) 1,000 UNIT (25MCG) TABLET PO SCH (08:03)
[2019-07-25] MEDS: Thiamine (B-1) 100 MG in 0.9 % Sodium Chloride 50 ML IVPB SCH (08:03)
[2019-07-25] MEDS: cefTRIAXone 2,000 MG in 0.9 % Sodium Chloride Mini Bag 100 ML IVPB SCH (08:05)
[2019-07-25] MEDS: Ziprasidone 20 MG CAPSULE PO SCH ×2 (08:05→16:27)
[2019-07-25] MEDS ORDERED: Aminoglycoside Consult 1 EACH MC ONE (12:21)
[2019-07-26] MEDS: Cyprohepatdine 4 MG TABLET PO SCH ×3 (00:23→23:32)
[2019-07-26] MEDS: ARIPiprazole 10 MG TABLET PO SCH ×2 (00:24→23:33)
[2019-07-26] MEDS: Divalproex Sodium 125 MG CAPSULE PO SCH ×3 (00:24→23:34)
[2019-07-26] MEDS: Melatonin 3 MG TABLET PO SCH ×2 (00:29→21:51)
[2019-07-26] MEDS: 0.9 % Sodium Chloride w KCl 40 MEQ/1,000 ML MLS IVC SCH ×4 (05:27→21:30)
[2019-07-26] MEDS: *HR* Heparin 5,000 UNIT/ML VIAL SQ SCH ×2 (06:17→17:44)
[2019-07-26] MEDS: Ziprasidone 20 MG CAPSULE PO SCH ×2 (07:58→17:44)
[2019-07-26] MEDS: Metoprolol XL (24 HR) Succ 50 MG TAB.ER.24H PO SCH (07:58)
[2019-07-26] MEDS: Aspirin 81 MG TAB.CHEW PO SCH (07:58)
[2019-07-26] MEDS: Cholecalciferol (D-3) 1,000 UNIT (25MCG) TABLET PO SCH (07:58)
[2019-07-26] MEDS: amLODIPine 5 MG TABLET PO SCH (07:58)
[2019-07-26 08:30] LABS: BUN/Creatinine Ratio 6 (6-26); Blood Urea Nitrogen 3 mg/dL (8-23); Calcium 9.2 mg/dL (8.6-10.3); Carbon Dioxide 22 mEq/L (23-29); Chloride 114 mEq/L (98-107); Glucose 85 mg/dL (70-105); Magnesium 1.6 mg/dL (1.6-2.6); Osmolality,Calculated 288 (280-300); Phosphorous 2.8 mg/dL (2.7-4.5); Potassium 4.3 mEq/L (3.5-5.1); Sodium 141 mEq/L (136-145); eGFR For African Americans > 60 (> 60); eGFR For Non-African Americans > 60 (> 60)
[2019-07-26] MEDS: Potassium Chloride Elixir 20 MEQ/15 ML UDC PO SCH (08:55)
[2019-07-27] MEDS: *HR* Heparin 5,000 UNIT/ML VIAL SQ SCH ×2 (06:39→16:53)
[2019-07-27] MEDS: Ziprasidone 20 MG CAPSULE PO SCH ×2 (08:00→16:53)
[2019-07-27] MEDS: Cyprohepatdine 4 MG TABLET PO SCH ×2 (08:00→20:49)
[2019-07-27] MEDS: Divalproex Sodium 125 MG CAPSULE PO SCH ×2 (08:00→20:48)
[2019-07-27] MEDS: amLODIPine 5 MG TABLET PO SCH (08:00)
[2019-07-27] MEDS: Metoprolol XL (24 HR) Succ 50 MG TAB.ER.24H PO SCH (08:00)
[2019-07-27] MEDS: Cholecalciferol (D-3) 1,000 UNIT (25MCG) TABLET PO SCH (08:01)
[2019-07-27] MEDS: Potassium Chloride Elixir 20 MEQ/15 ML UDC PO SCH (08:01)
[2019-07-27] MEDS: Aspirin 81 MG TAB.CHEW PO SCH (08:01)
[2019-07-27] MEDS: 0.9 % Sodium Chloride w KCl 40 MEQ/1,000 ML MLS IVC SCH (12:00)
[2019-07-27] MEDS: Melatonin 3 MG TABLET PO SCH (20:48)
[2019-07-27] MEDS: ARIPiprazole 10 MG TABLET PO SCH (20:49)
[2019-07-28] MEDS: *HR* Heparin 5,000 UNIT/ML VIAL SQ SCH ×2 (05:10→17:11)
[2019-07-28] MEDS: Divalproex Sodium 125 MG CAPSULE PO SCH ×2 (08:22→20:29)
[2019-07-28] MEDS: amLODIPine 5 MG TABLET PO SCH (08:22)
[2019-07-28] MEDS: Ziprasidone 20 MG CAPSULE PO SCH ×2 (08:22→16:53)
[2019-07-28] MEDS: Cyprohepatdine 4 MG TABLET PO SCH ×2 (08:22→20:28)
[2019-07-28] MEDS: Cholecalciferol (D-3) 1,000 UNIT (25MCG) TABLET PO SCH (08:23)
[2019-07-28] MEDS: Aspirin 81 MG TAB.CHEW PO SCH (08:24)
[2019-07-28] MEDS: Metoprolol XL (24 HR) Succ 50 MG TAB.ER.24H PO SCH (08:24)
[2019-07-28] MEDS: Potassium Chloride Elixir 20 MEQ/15 ML UDC PO SCH (08:25)
[2019-07-28 09:19] LABS: Hemoglobin 13.3 g/dL (11.5-15.4)
[2019-07-28 09:34] LABS: BUN/Creatinine Ratio 15 (6-26); Blood Urea Nitrogen 8 mg/dL (8-23); Calcium 9.3 mg/dL (8.6-10.3); Carbon Dioxide 24 mEq/L (23-29); Chloride 110 mEq/L (98-107); Glucose 87 mg/dL (70-105); Magnesium 1.8 mg/dL (1.6-2.6); Osmolality,Calculated 290 (280-300); Phosphorous 4.3 mg/dL (2.7-4.5); Sodium 141 mEq/L (136-145); eGFR For African Americans > 60 (> 60); eGFR For Non-African Americans > 60 (> 60)
[2019-07-28] MEDS: ARIPiprazole 10 MG TABLET PO SCH (20:28)
[2019-07-28] MEDS: Melatonin 3 MG TABLET PO SCH (20:28)
[2019-07-29] MEDS: *HR* Heparin 5,000 UNIT/ML VIAL SQ SCH (05:11)
[2019-07-29] MEDS: Cyprohepatdine 4 MG TABLET PO SCH (07:43)
[2019-07-29] MEDS: Ziprasidone 20 MG CAPSULE PO SCH (07:43)
[2019-07-29] MEDS: Aspirin 81 MG TAB.CHEW PO SCH (07:43)
[2019-07-29] MEDS: Divalproex Sodium 125 MG CAPSULE PO SCH (07:43)
[2019-07-29] MEDS: Metoprolol XL (24 HR) Succ 50 MG TAB.ER.24H PO SCH (07:44)
[2019-07-29] MEDS: Potassium Chloride Elixir 20 MEQ/15 ML UDC PO SCH (07:44)
[2019-07-29] MEDS: amLODIPine 5 MG TABLET PO SCH (07:44)
[2019-07-29] MEDS: Cholecalciferol (D-3) 1,000 UNIT (25MCG) TABLET PO SCH (07:44)
[2019-07-29 10:33] VITALS: BP 113/63
[2019-07-29] MEDS ORDERED: Acetaminophen 325 MG TABLET PO PRN (12:15)
[2019-07-30 10:49] LABS: HSV 1 Glycoprotein G IgG CSF 0.81 IV (<=0.89)
== END 2019-07-29 14:25 | DRG 896 ==
LOC: 2ANU 13:39 → EMEROOARM 13:39 → SUATTDRO 17:42 → 2ANU 19:34 → SUATTDRO 07-24 13:17
PROVIDERS: ADMIT Internal Medicine; ATTEND Family Medicine

== ENCOUNTER 2019-09-08 12:50 | Inpatient (IN) ==
[~2019-09-08 12:50] MED LIST: *HR* EPINEPHrine 1 MG/10 ML SYRINGE IVP ONE; *HR* Rocuronium Bromide 50 MG/5 ML VIAL IVP ONE
[2019-09-08] MEDS ORDERED: *HR* Atropine Sulfate 1 MG/10 ML SYRINGE ONE (12:52)
[2019-09-08] MEDS ORDERED: Calcium Gluconate 1gm/50mL 1 GM/50 ML BAG IVPB ONE (12:53)
[2019-09-08] MEDS ORDERED: *HR* Rocuronium Bromide 50 MG/5 ML VIAL IVP ONE (13:07)
[2019-09-08] MEDS ORDERED: *HR* Ketamine 500 MG/5 ML MDV IVP ONE (13:07)
[2019-09-08 13:30] LABS: Basophils % 0.2 %; Eosinophils # 0.1 K/mcL (0.0-0.6); Eosinophils % 1.2 %; Hematocrit 39.6 % (35.3-44.9); Hemoglobin 12.5 g/dL (11.5-15.4); Immature Granulocytes % 0.5 % (0-4); Lymphocytes # 1.1 K/mcL (0.6-4.6); Lymphocytes % 12.7 %; Mean Corpuscular HGB Conc 31.6 g/dL (31.6-35.5); Mean Corpuscular Hemoglobin 29.1 pg (28.0-33.3); Mean Corpuscular Volume 92.3 fL (83.0-100.0); Mean Platelet Volume 10.6 fL (9.4-12.4); Monocytes # 0.7 K/mcL (0.0-1.3); Monocytes % 8.8 %; Neutrophils # 6.4 K/mcL (1.6-8.9); Nucleated Red Blood Cells 0.7 /100 WBC (0); Platelet Count 238 K/mcL (140-400); Red Blood Count 4.29 M/mcL (3.82-4.97); Red Cell Distribution Width 14.1 % (11.5-14.5); Segmented Neutrophils % 76.6 %; White Blood Count 8.4 K/mcL (4.3-11.1)
[2019-09-08] MEDS ORDERED: *HR* Atropine Sulfate 1 MG/10 ML SYRINGE IVP ONE (13:30)
[2019-09-08] MEDS ORDERED: 0.9 % Sodium Chloride 1,000 ML IVC ONE (13:30)
[2019-09-08 13:41] LABS: INR 0.9; Prothrombin Time 10.7 Seconds (9.4-12.1)
[2019-09-08] MEDS ORDERED: Ketamine *HR* 500 MG/10 ML MDV IVP ONE (13:45)
[2019-09-08 13:47] LABS: Alanine Aminotransferase 15 Units/L (7-52); Albumin 3.4 g/dL (3.5-5.7); Albumin/Globulin Ratio 1.3 (1.1-2.2); Alkaline Phosphatase 111 Units/L (34-104); Aspartate Amino Transferase 10 Units/L (13-39); BUN/Creatinine Ratio 20 (6-26); Bilirubin,Direct 0.1 mg/dL (0.0-0.2); Bilirubin,Indirect 0.2 mg/dL (0.0-1.0); Bilirubin,Total 0.3 mg/dL (0.3-1.0); Blood Urea Nitrogen 10 mg/dL (8-23); Calcium 8.6 mg/dL (8.6-10.3); Carbon Dioxide 23 mEq/L (23-29); Chloride 111 mEq/L (98-107); Ethanol < 10 mg/dL (Less than 10); Globulin 2.7 g/dL (2.4-3.5); Glucose 160 mg/dL (70-105); Osmolality,Calculated 300 (280-300); Potassium 3.8 mEq/L (3.5-5.1); Sodium 144 mEq/L (136-145); Total Protein 6.1 g/dL (6.4-8.9); Troponin I < 0.03 ng/mL (< 0.04); eGFR For African Americans > 60 (> 60); eGFR For Non-African Americans > 60 (> 60)
[2019-09-08 13:53] LABS: Bilirubin,Urine Negative (Negative); Blood,Urine Negative (Negative); Clarity,Urine Clear (Clear); Color,Urine Light-Yellow (Yellow); Glucose,Urine (UA) Normal (Normal); Ketones,Urine Negative (Negative); Leukocyte Esterase,Urine Negative (Negative); Nitrite,Urine Negative (Negative); PH,Urine 5.5 pH Units (5.0-8.0); Protein,Urine Negative (Neg-Trace); Specific Gravity,Urine 1.018 (1.010-1.025); Urobilinogen,Urine Normal (Normal)
[2019-09-08 14:00] LABS: Amphetamine Screen,Urine Negative ng/mL (Cutoff=1000); Barbiturate Screen,Urine Negative ng/mL (Cutoff=200); Benzodiazepines Screen,Urine Negative ng/mL (Cutoff=200); Cannabinoid Screen,Urine Negative ng/mL (Cutoff = 50); Cocaine Screen,Urine Negative ng/mL (Cutoff= 300); Opiate Screen,Urine Positive ng/mL (Cutoff=300); Phencyclidine Screen,Urine Negative ng/mL (Cutoff=25)
[2019-09-08] MEDS ORDERED: Isovue-370 500 ML BOTTLE IVP ONE (14:05)
[2019-09-08] MEDS: FentaNYL (PF) 1,000 MCG/100 ML IV.SOLN IVC SCH (15:11)
[2019-09-08] MEDS: Midazolam HCl 50 MG/100 ML IV.SOLN IVC SCH (15:11)
[2019-09-08] MEDS ORDERED: Piperacillin/Tazobactam 3.375 GM in 0.9 % Sodium Chloride Mini Bag 100 ML IVPB ONE (15:14)
[2019-09-08] MEDS ORDERED: Piperacillin/Tazobactam 3.375 GM in Water for inj. (sterile) 20 ML IVP ONE (15:27)
[2019-09-08] MEDS ORDERED: Azithromycin 500 MG in 0.9 % Sodium Chloride 250 ML IVPB ONE (15:31)
[2019-09-08 15:50] LABS: ABG Base Excess 5 mEq/L (-2 to 3); ABG HCO3 26 mEq/L (21-27); ABG Oxygen Saturation 100 % (95-98); ABG PCO2 29 mmHg (35-45); ABG PH 7.56 pH Units (7.32-7.45); ABG PO2 234 mmHg (85-104); ABG TCO2 27 mEq/L (20-26); Blood Gas Modality ASSIST CONTROL; Blood Gas VT 400 cc
[2019-09-08 16:28] LABS: Acetaminophen < 10 mcg/mL (10-20); Salicylate < 2.5 mg/dL (15.0-30.0)
[2019-09-08] MEDS ORDERED: Naloxone 0.4 MG/ML INJ IVP PRN (18:50)
[2019-09-08] MEDS ORDERED: Acetaminophen 650 MG RECTAL SUPP RC PRN (18:50)
[2019-09-08] MEDS ORDERED: Ondansetron 4 MG/2 ML VIAL IVP PRN (18:50)
[2019-09-08] MEDS: Ringers Solution, Lactated 1,000 ML IVC SCH (20:17)
[2019-09-08] MEDS: Pantoprazole 40 MG VIAL IVP SCH (20:24)
[2019-09-09] MEDS: Ringers Solution, Lactated 1,000 ML IVC SCH ×3 (03:47→16:51)
[2019-09-09 04:25] LABS: ABG Base Excess 5 mEq/L (-2 to 3); ABG HCO3 25 mEq/L (21-27); ABG Oxygen Saturation 99 % (95-98); ABG PCO2 25 mmHg (35-45); ABG PH 7.61 pH Units (7.32-7.45); ABG PO2 109 mmHg (85-104); ABG TCO2 26 mEq/L (20-26); Blood Gas Modality ASSIST CONTROL; Blood Gas VT 450 cc
[2019-09-09] MEDS: FentaNYL (PF) 1,000 MCG/100 ML IV.SOLN IVC SCH ×2 (04:28→11:13)
[2019-09-09 05:14] LABS: Basophils % 0.2 %; Hematocrit 34.3 % (35.3-44.9); Hemoglobin 11.3 g/dL (11.5-15.4); Immature Granulocytes % 0.8 % (0-4); Lymphocytes # 0.8 K/mcL (0.6-4.6); Mean Corpuscular HGB Conc 32.9 g/dL (31.6-35.5); Mean Corpuscular Hemoglobin 29.4 pg (28.0-33.3); Mean Corpuscular Volume 89.3 fL (83.0-100.0); Mean Platelet Volume 10.2 fL (9.4-12.4); Monocytes # 0.9 K/mcL (0.0-1.3); Neutrophils # 9.5 K/mcL (1.6-8.9); Nucleated Red Blood Cells 0.8 /100 WBC (0); Platelet Count 175 K/mcL (140-400); Red Blood Count 3.84 M/mcL (3.82-4.97); Red Cell Distribution Width 14.2 % (11.5-14.5); White Blood Count 11.3 K/mcL (4.3-11.1)
[2019-09-09 05:34] LABS: BUN/Creatinine Ratio 14 (6-26); Blood Urea Nitrogen 7 mg/dL (8-23); Calcium 8.1 mg/dL (8.6-10.3); Carbon Dioxide 24 mEq/L (23-29); Chloride 113 mEq/L (98-107); Glucose 125 mg/dL (70-105); Osmolality,Calculated 301 (280-300); Sodium 146 mEq/L (136-145); eGFR For African Americans > 60 (> 60); eGFR For Non-African Americans > 60 (> 60)
[2019-09-09] MEDS ORDERED: Vancomycin (wt based) 1,000 MG VIAL IVPB SCH (07:00)
[2019-09-09] MEDS: Potassium Chloride 40 MEQ/200 ML BAG IVPB PRN ×4 (07:16→16:52)
[2019-09-09] MEDS ORDERED: Calcium Gluconate 1gm/50mL 1 GM/50 ML BAG IVPB PRN (07:39)
[2019-09-09] MEDS ORDERED: Potassium Chloride 40 MEQ/200 ML BAG IVPB PRN (07:39)
[2019-09-09] MEDS ORDERED: Potassium Phosphate 44 MEQ in 0.9 % Sodium Chloride 250 ML IVPB PRN (07:39)
[2019-09-09] MEDS: Pantoprazole 40 MG VIAL IVP SCH (08:16)
[2019-09-09 09:03] LABS: Basophils % 0.1 %; Hematocrit 37.2 % (35.3-44.9); Immature Granulocytes % 0.6 % (0-4); Lymphocytes # 0.8 K/mcL (0.6-4.6); Lymphocytes % 7.1 %; Mean Corpuscular HGB Conc 32.3 g/dL (31.6-35.5); Mean Corpuscular Hemoglobin 28.4 pg (28.0-33.3); Mean Corpuscular Volume 87.9 fL (83.0-100.0); Mean Platelet Volume 10.6 fL (9.4-12.4); Monocytes # 0.8 K/mcL (0.0-1.3); Monocytes % 7.1 %; Neutrophils # 10.1 K/mcL (1.6-8.9); Nucleated Red Blood Cells 0.5 /100 WBC (0); Platelet Count 198 K/mcL (140-400); Red Blood Count 4.23 M/mcL (3.82-4.97); Red Cell Distribution Width 14.7 % (11.5-14.5); Segmented Neutrophils % 85.1 %; White Blood Count 11.8 K/mcL (4.3-11.1)
[2019-09-09 09:37] LABS: BUN/Creatinine Ratio 11 (6-26); Blood Urea Nitrogen 7 mg/dL (8-23); Calcium 8.6 mg/dL (8.6-10.3); Carbon Dioxide 26 mEq/L (23-29); Chloride 111 mEq/L (98-107); Glucose 125 mg/dL (70-105); Osmolality,Calculated 297 (280-300); Sodium 144 mEq/L (136-145); eGFR For African Americans > 60 (> 60); eGFR For Non-African Americans > 60 (> 60)
[2019-09-09] MEDS: Piperacillin/Tazobactam 3.375 GM in 0.9 % Sodium Chloride Mini Bag 100 ML IVPB SCH ×2 (10:15→16:51)
[2019-09-09] MEDS ORDERED: Artificial Tears SOLN 15 ML BOTTLE BOTH EYES PRN (10:32)
[2019-09-09] MEDS: Midazolam HCl 50 MG/100 ML IV.SOLN IVC SCH (10:40)
[2019-09-09] MEDS: Doxycycline 100 MG in 0.9 % Sodium Chloride Mini Bag 100 ML IVPB SCH ×2 (11:01→21:47)
[2019-09-09] MEDS: Chlorhexidine Rinse 15 ML MOUTHWASH MM SCH ×2 (11:02→20:08)
[2019-09-09] MEDS: Artificial Tears SOLN 15 ML BOTTLE BOTH EYES SCH ×4 (11:22→23:48)
[2019-09-09 11:37] LABS: ABG Base Excess 2 mEq/L (-2 to 3); ABG HCO3 26 mEq/L (21-27); ABG Oxygen Saturation 97 % (95-98); ABG PCO2 34 mmHg (35-45); ABG PH 7.48 pH Units (7.32-7.45); ABG PO2 80 mmHg (85-104); ABG TCO2 27 mEq/L (20-26); Blood Gas VT 380 cc
[2019-09-09 14:07] LABS: Magnesium 1.8 mg/dL (1.6-2.6); Potassium 3.9 mEq/L (3.5-5.1)
[2019-09-09] MEDS: Vancomycin 1,250 MG/262.5 ML IV.SOLN IVPB SCH (17:30)
[2019-09-09] MEDS ORDERED: *HR* Dextrose 50 % in Water (Vial) 50 ML VIAL ONE (23:01)
[2019-09-09] MEDS ORDERED: Dextrose Gel 15 GM/37.5 ML TUBE PO PRN ×2 (23:04)
[2019-09-09] MEDS: *HR* Dextrose 50 % in Water (Vial) 50 ML VIAL IVP PRN (23:08)
[2019-09-10 00:12] LABS: Magnesium 1.9 mg/dL (1.6-2.6); Phosphorous 2.8 mg/dL (2.7-4.5); Potassium 3.6 mEq/L (3.5-5.1)
[2019-09-10] MEDS: Piperacillin/Tazobactam 3.375 GM in 0.9 % Sodium Chloride Mini Bag 100 ML IVPB SCH ×3 (01:36→17:12)
[2019-09-10] MEDS: Artificial Tears SOLN 15 ML BOTTLE BOTH EYES SCH ×2 (03:39→09:32)
[2019-09-10 03:54] LABS: Basophils % 0.2 %; Hemoglobin 10.9 g/dL (11.5-15.4); Lymphocytes % 10.4 %; Mean Platelet Volume 10.5 fL (9.4-12.4); Nucleated Red Blood Cells 0.2 /100 WBC (0)
[2019-09-10 03:56] LABS: Eosinophils % 0.2 %; Hematocrit 35.6 % (35.3-44.9); Immature Granulocytes % 0.6 % (0-4); Immature Platelets 4.4 % (1.1-6.1); Lymphocytes # 1.3 K/mcL (0.6-4.6); Mean Corpuscular HGB Conc 30.6 g/dL (31.6-35.5); Mean Corpuscular Hemoglobin 28.6 pg (28.0-33.3); Mean Corpuscular Volume 93.4 fL (83.0-100.0); Monocytes # 1.2 K/mcL (0.0-1.3); Monocytes % 9.4 %; Neutrophils # 10.1 K/mcL (1.6-8.9); Platelet Count 145 K/mcL (140-400); Red Blood Count 3.81 M/mcL (3.82-4.97); Red Cell Distribution Width 14.9 % (11.5-14.5); Segmented Neutrophils % 79.2 %; White Blood Count 12.7 K/mcL (4.3-11.1)
[2019-09-10] MEDS: FentaNYL (PF) 1,000 MCG/100 ML IV.SOLN IVC SCH (04:05)
[2019-09-10 04:09] LABS: BUN/Creatinine Ratio 15 (6-26); Blood Urea Nitrogen 9 mg/dL (8-23); Calcium 7.8 mg/dL (8.6-10.3); Carbon Dioxide 23 mEq/L (23-29); Chloride 112 mEq/L (98-107); Glucose 71 mg/dL (70-105); Osmolality,Calculated 289 (280-300); Potassium 4.1 mEq/L (3.5-5.1); Sodium 141 mEq/L (136-145); eGFR For African Americans > 60 (> 60); eGFR For Non-African Americans > 60 (> 60)
[2019-09-10 04:37] LABS: ABG Base Excess 0 mEq/L (-2 to 3); ABG HCO3 24 mEq/L (21-27); ABG Oxygen Saturation 94 % (95-98); ABG PCO2 38 mmHg (35-45); ABG PH 7.41 pH Units (7.32-7.45); ABG PO2 70 mmHg (85-104); ABG TCO2 25 mEq/L (20-26); Blood Gas Modality ASSIST CONTROL; Blood Gas VT 380 cc
[2019-09-10] MEDS: Vancomycin 1,250 MG/262.5 ML IV.SOLN IVPB SCH (05:04)
[2019-09-10] MEDS: *HR* Dextrose 50 % in Water (Vial) 50 ML VIAL IVP PRN (05:48)
[2019-09-10] MEDS: D5% in Water 1,000 ML IVC PRN ×2 (05:49→17:08)
[2019-09-10] MEDS: Ringers Solution, Lactated 1,000 ML IVC SCH (05:52)
[2019-09-10] MEDS ORDERED: Perflutren Lipid Microsphere 1.3 ML in 0.9 % Sodium Chloride 8.7 ML IVP PRN (07:48)
[2019-09-10] MEDS: Pantoprazole 40 MG VIAL IVP SCH (08:34)
[2019-09-10] MEDS ORDERED: *HR* LORazepam 0.5 MG TABLET PO PRN (09:48)
[2019-09-10] MEDS: Chlorhexidine Rinse 15 ML MOUTHWASH MM SCH (09:52)
[2019-09-10] MEDS ORDERED: Divalproex (12 HR) 250 MG TABLET PO SCH (10:00)
[2019-09-10] MEDS: Doxycycline 100 MG in 0.9 % Sodium Chloride Mini Bag 100 ML IVPB SCH (10:22)
[2019-09-10] MEDS ORDERED: clonazePAM 1 MG TABLET PO PRN ×2 (11:54→17:43)
[2019-09-10] MEDS: *HR* Heparin 5,000 UNIT/ML VIAL SQ SCH ×3 (13:18→19:12)
[2019-09-10] MEDS ORDERED: *HR* LORazepam 1 MG TABLET PO PRN ×2 (13:37→15:54)
[2019-09-10] MEDS ORDERED: Ondansetron 4 MG/2 ML VIAL IVP PRN (17:43)
[2019-09-10] MEDS ORDERED: D5% in Water 1,000 ML IVC PRN (17:43)
[2019-09-10] MEDS ORDERED: Bisacodyl 10 MG RECTAL SUPPOSITORY RC PRN (17:43)
[2019-09-10] MEDS ORDERED: Naloxone 0.4 MG/ML INJ IVP PRN (17:43)
[2019-09-10] MEDS ORDERED: *HR* Dextrose 50 % in Water (Vial) 50 ML VIAL IVP PRN (17:43)
[2019-09-10] MEDS ORDERED: Dextrose Gel 15 GM/37.5 ML TUBE PO PRN ×2 (17:43)
[2019-09-10] MEDS ORDERED: Calcium Gluconate 1gm/50mL 1 GM/50 ML BAG IVPB PRN (17:43)
[2019-09-10] MEDS ORDERED: Acetaminophen 650 MG RECTAL SUPP RC PRN (17:43)
[2019-09-10] MEDS ORDERED: Potassium Phosphate 44 MEQ in 0.9 % Sodium Chloride 250 ML IVPB PRN (17:43)
[2019-09-10] MEDS ORDERED: Potassium Chloride 40 MEQ/200 ML BAG IVPB PRN (17:43)
[2019-09-10] MEDS ORDERED: *HR* LORazepam 2 MG/ML VIAL IVP ONE (20:26)
[2019-09-10] MEDS: Doxycycline 100 MG CAPSULE PO SCH (20:45)
[2019-09-10] MEDS: Divalproex (12 HR) 250 MG TABLET PO SCH (20:45)
[2019-09-10] MEDS: Melatonin 3 MG TABLET PO SCH (20:45)
[2019-09-10] MEDS ORDERED: NON-FORMULARY MEDICATION 1 EACH EACH (Divalproex Sodium [Depakote] 250 MG) PO SCH (21:00)
[2019-09-10] MEDS ORDERED: Doxycycline 100 MG CAPSULE PO SCH (21:00)
[2019-09-11] MEDS: Piperacillin/Tazobactam 3.375 GM in 0.9 % Sodium Chloride Mini Bag 100 ML IVPB SCH ×3 (01:06→18:37)
[2019-09-11] MEDS: *HR* Heparin 5,000 UNIT/ML VIAL SQ SCH ×2 (05:35→18:38)
[2019-09-11] MEDS: *HR* LORazepam 1 MG TABLET PO PRN ×2 (10:18→16:46)
[2019-09-11] MEDS: Divalproex (12 HR) 250 MG TABLET PO SCH ×2 (10:18→21:28)
[2019-09-11] MEDS: Aspirin 81 MG TAB.CHEW PO SCH (10:18)
[2019-09-11] MEDS: Metoprolol XL (24 HR) Succ 50 MG TAB.ER.24H PO SCH (10:18)
[2019-09-11] MEDS: Doxycycline 100 MG CAPSULE PO SCH ×2 (10:19→21:28)
[2019-09-11] MEDS: Pantoprazole 40 MG VIAL IVP SCH (10:23)
[2019-09-11 11:45] LABS: Basophils % 0.2 %; Hematocrit 31.9 % (35.3-44.9); Immature Granulocytes % 0.5 % (0-4); Lymphocytes % 8.3 %; Mean Corpuscular Volume 90.4 fL (83.0-100.0); Red Blood Count 3.53 M/mcL (3.82-4.97)
[2019-09-11 11:47] LABS: Eosinophils # 0.2 K/mcL (0.0-0.6); Eosinophils % 1.3 %; Hemoglobin 10.3 g/dL (11.5-15.4); Immature Platelets 4.8 % (1.1-6.1); Mean Corpuscular HGB Conc 32.3 g/dL (31.6-35.5); Mean Corpuscular Hemoglobin 29.2 pg (28.0-33.3); Mean Platelet Volume 10.6 fL (9.4-12.4); Monocytes # 1.4 K/mcL (0.0-1.3); Monocytes % 11.7 %; Neutrophils # 9.5 K/mcL (1.6-8.9); Platelet Count 103 K/mcL (140-400); Red Cell Distribution Width 14.4 % (11.5-14.5); White Blood Count 12.2 K/mcL (4.3-11.1)
[2019-09-11] MEDS ORDERED: Aminoglycoside Consult 1 EACH MC ONE (11:57)
[2019-09-11 12:05] LABS: Albumin 2.6 g/dL (3.5-5.7); Albumin/Globulin Ratio 1.1 (1.1-2.2); Bilirubin,Total 0.9 mg/dL (0.3-1.0); Calcium 8.1 mg/dL (8.6-10.3); Globulin 2.4 g/dL (2.4-3.5)
[2019-09-11 12:14] LABS: Platelet Estimate Slight Decrease (Normal)
[2019-09-11] MEDS: Melatonin 3 MG TABLET PO SCH (21:27)
[2019-09-11] MEDS ORDERED: *HR* LORazepam 2 MG/ML VIAL IVP ONE (23:38)
[2019-09-12] MEDS ORDERED: *HR* Promethazine 25 MG/ML VIAL IVP ONE (00:38)
[2019-09-12] MEDS: Piperacillin/Tazobactam 3.375 GM in 0.9 % Sodium Chloride Mini Bag 100 ML IVPB SCH ×3 (02:37→18:53)
[2019-09-12 03:26] LABS: Calcium 8.5 mg/dL (8.6-10.3); Immature Granulocytes % 0.5 % (0-4); Potassium 4.3 mEq/L (3.5-5.1); Red Cell Distribution Width 14.6 % (11.5-14.5); Segmented Neutrophils % 80.5 %
[2019-09-12 03:28] LABS: Basophils % 0.3 %; Eosinophils # 0.1 K/mcL (0.0-0.6); Eosinophils % 0.6 %; Hemoglobin 10.8 g/dL (11.5-15.4); Immature Platelets 4.4 % (1.1-6.1); Lymphocytes # 0.9 K/mcL (0.6-4.6); Lymphocytes % 9.6 %; Mean Corpuscular HGB Conc 31.8 g/dL (31.6-35.5); Mean Corpuscular Hemoglobin 29.3 pg (28.0-33.3); Mean Corpuscular Volume 92.4 fL (83.0-100.0); Mean Platelet Volume 10.9 fL (9.4-12.4); Monocytes # 0.8 K/mcL (0.0-1.3); Monocytes % 8.5 %; Neutrophils # 7.7 K/mcL (1.6-8.9); Platelet Count 100 K/mcL (140-400); Red Blood Count 3.68 M/mcL (3.82-4.97); White Blood Count 9.6 K/mcL (4.3-11.1)
[2019-09-12] MEDS: *HR* Heparin 5,000 UNIT/ML VIAL SQ SCH ×2 (05:52→20:18)
[2019-09-12] MEDS: *HR* LORazepam 1 MG TABLET PO PRN (11:38)
[2019-09-12] MEDS: Pantoprazole 40 MG VIAL IVP SCH (11:38)
[2019-09-12] MEDS: Metoprolol XL (24 HR) Succ 50 MG TAB.ER.24H PO SCH (11:38)
[2019-09-12] MEDS: Divalproex (12 HR) 250 MG TABLET PO SCH ×2 (11:39→21:25)
[2019-09-12] MEDS: Doxycycline 100 MG CAPSULE PO SCH ×2 (11:39→21:25)
[2019-09-12] MEDS: Aspirin 81 MG TAB.CHEW PO SCH (11:39)
[2019-09-12] MEDS: Melatonin 3 MG TABLET PO SCH (21:25)
[2019-09-13] MEDS: Piperacillin/Tazobactam 3.375 GM in 0.9 % Sodium Chloride Mini Bag 100 ML IVPB SCH ×3 (02:04→18:35)
[2019-09-13] MEDS: *HR* LORazepam 1 MG TABLET PO PRN ×3 (03:48→19:57)
[2019-09-13] MEDS: *HR* Heparin 5,000 UNIT/ML VIAL SQ SCH ×2 (06:03→18:35)
[2019-09-13] MEDS: Pantoprazole 40 MG VIAL IVP SCH (12:02)
[2019-09-13] MEDS: Divalproex (12 HR) 250 MG TABLET PO SCH ×2 (12:03→19:57)
[2019-09-13] MEDS: Doxycycline 100 MG CAPSULE PO SCH ×2 (12:03→19:57)
[2019-09-13] MEDS: Aspirin 81 MG TAB.CHEW PO SCH (12:03)
[2019-09-13] MEDS: Metoprolol XL (24 HR) Succ 50 MG TAB.ER.24H PO SCH (12:04)
[2019-09-13] MEDS: Melatonin 3 MG TABLET PO SCH (19:57)
[2019-09-14] MEDS: Piperacillin/Tazobactam 3.375 GM in 0.9 % Sodium Chloride Mini Bag 100 ML IVPB SCH (01:56)
[2019-09-14] MEDS: *HR* LORazepam 1 MG TABLET PO PRN ×2 (02:00→08:18)
[2019-09-14] MEDS: *HR* Heparin 5,000 UNIT/ML VIAL SQ SCH (06:05)
[2019-09-14 07:25] VITALS: BP 176/69
[2019-09-14] MEDS: Metoprolol XL (24 HR) Succ 50 MG TAB.ER.24H PO SCH (08:18)
[2019-09-14] MEDS: Aspirin 81 MG TAB.CHEW PO SCH (08:18)
[2019-09-14] MEDS: Doxycycline 100 MG CAPSULE PO SCH (08:18)
[2019-09-14] MEDS: Divalproex (12 HR) 250 MG TABLET PO SCH (09:00)
[2019-09-14] MEDS: Pantoprazole 40 MG VIAL IVP SCH (09:00)
== END 2019-09-14 11:58 | DRG 871 ==
LOC: EMEROOARM 12:50 → SUATTDRO 16:33 → ICNU 16:33 → 2ANU 09-10 18:34
PROVIDERS: ADMIT Family Medicine; ATTEND Student in an Organized Health Care Education/Training Program